=== PATIENT | female | born 1955 | race Caucasian/White ===

== ENCOUNTER 2017-11-19 06:41 | Inpatient (IN) | payer OTHER ==
[2017-11-07 08:41] LABS: APPEARANCE,URINE TURBID; BILIRUBIN, URINE NEGATIVE (NEGATIVE); GLUCOSE, URINE (UA) NEGATIVE (NEGATIVE); KETONES,URINE NEGATIVE (NEGATIVE); LEUKOCYTE ESTERASE ,URINE 1+ (NEGATIVE); NITRITE,URINE NEGATIVE (NEGATIVE); PH,URINE 6 (4.5-8.0); PROTEIN,URINE 1+ (NEGATIVE); UROBILINOGEN,URINE NORMAL MG/DL (0.0-1.0)
[2017-11-07 08:43] LABS: COLOR,URINE YELLOW
[2017-11-07 08:51] LABS: BASOPHILS % (AUTO) 1.2 % (0.0-2.0); EOSINOPHILS % (AUTO) 6.4 % (0.0-3.0); HEMATOCRIT 41.1 % (37.0-47.0); LYMPHOCYTES % (AUTO) 22.3 % (20.0-45.0); MEAN CORPUSCULAR VOLUME 94 FL (80-99); MONOCYTES % (AUTO) 11.6 % (1.0-10.0); NEUTROPHILS % (AUTO) 58.4 % (45.0-75.0); PLATELET COUNT 265 K/UL (150-450); RED BLOOD COUNT 4.36 M/UL (4.20-5.40); RED CELL DISTRIBUTION WIDTH 12.1 % (11.6-14.8); WHITE BLOOD COUNT 5.3 K/UL (4.8-10.8)
[2017-11-07 08:57] LABS: INR 0.9 (0.9-1.1)
[2017-11-07 09:13] LABS: ALANINE AMINOTRANSFERASE 23 U/L (12-78); ALBUMIN 3.5 G/DL (3.4-5.0); ALBUMIN/GLOBULIN RATIO 0.9 (1.0-2.7); ALKALINE PHOSPHATASE 120 U/L (46-116); ANION GAP 6 mmol/L (5-15); ASPARTATE AMINO TRANSFERASE 18 U/L (15-37); BILIRUBIN,TOTAL 0.2 MG/DL (0.2-1.0); BLOOD UREA NITROGEN 14 mg/dL (7-18); CALCIUM 8.4 MG/DL (8.5-10.1); CARBON DIOXIDE 28 MMOL/L (21-32); CHLORIDE 108 MMOL/L (98-107); CREATININE 0.9 MG/DL (0.55-1.30); SODIUM 142 MMOL/L (136-145)
--- NOTE | 2017-11-07 12:16 | Diagnostic Imaging Report ---
Indication: Reason For Exam: COUGH Technique: 2 views of the chest Comparison: 12/02/2010 Findings: Lungs and pleural spaces are clear. Normal heart size. Lumbar spine hardware is seen on the lateral view. There is mild thoracic scoliotic deformity. Impression: No acute process
[~2017-11-19] VITALS: Ht 162.6 cm; Wt 86.6 kg
[2017-11-19] VITALS (11 sets, daily range): BP systolic 89–119; BP diastolic 45–69
--- NOTE | 2017-11-19 00:17 | Cardiology Report ---
APPROVED REPORT EKG Measurement Heart [id number] Normal sinus rhythm with sinus arrhythmia Normal ECG
[~2017-11-19 06:41] MED LIST: ABILIFY20 MG ORAL; KADIAN20 M1 PO; LOPRESSOR HCT1 EAC3 ORAL; PROZAC40 MG ORAL; SIMVASTATIN20 MG ORAL; TOPIRAMATE100 MG ORAL
[2017-11-19] MEDS ORDERED: ceFAZolin sod 2 GM in D5W 110 ML IVPB ONE (07:00)
--- NOTE | 2017-11-19 07:45 | Pre-Procedure Note/Attestation ---
Pre-Procedure Note/Attestation Complete Prior to Procedure Procedure Narrative: L1-2 XLIF, PSF t9 to L2, laminectomy L12, revision hardware Indications for Procedure Pre-Operative Diagnosis: sp l2 s1 fusion, adjacent level arthosis L12 Attestation I attest that I discussed the nature of the procedure; its benefits; risks and complications; and alternatives (and the risks and benefits of such alternatives ), prior to the procedure, with the patient (or the patient's legal site safety representative). I attest that, if there was a reasonable possibility of needing a blood transfusion, the patient (or the patient's legal site safety representative) was given the [place] [employer] [facility] standardized written summary, pursuant to the [place] Blood Safety Act ([place] Health and Safety Code # 1645, as amended). I attest that I re-evaluated the patient just prior to the surgery and that there has been no change in the patient's H&P, except as documented below: KINA CHONG Nov 19, 2017 07:45
[2017-11-19] MEDS ORDERED: Thrombin 5000 units spray kit TOPIC ONE ×2 (08:20→10:59)
[2017-11-19] MEDS ORDERED: Thrombin 5000 units TOPIC ONE ×2 (08:20→14:57)
[2017-11-19] MEDS ORDERED: Gelfoam Absorbable 1gm powder pkt TOPIC ONE ×2 (08:20→10:59)
[2017-11-19] MEDS ORDERED: Bacitracin 50000 Units Vial ONE ×2 (08:21→16:02)
[2017-11-19] MEDS ORDERED: LR 1000ml 1,000 ML IVLG SCH (08:21)
[2017-11-19] MEDS ORDERED: Surgicel 4in x 8in TOPIC ONE (08:21)
--- NOTE | 2017-11-19 08:22 | Anethesia Preoperative Eval ---
Anesthesia Pre-op PMH/ROS General Date of Evaluation: Nov 19, 2017 Time of Evaluation: 09:26 Anesthesiologist: Karen ASA Score: ASA 3 Mallampati Score Class I : Soft palate, uvula, fauces, pillars visible Class II: Soft palate, uvula, fauces visible Class III: Soft palate, base of uvula visible Class IV: Only hard plate visible Mallampati Classification: Class II Surgeon: Robert Diagnosis: Back Pain Surgical Procedure: Lateral Spinal Fusion L1-2 Anesthesia History: none Family History: no anesthesia problems Allergies: Coded Allergies: ADHESIVE TAPE (Verified Allergy, Severe, blisters, rash , 11/18/17) CITALOPRAM (Verified Allergy, Severe, sob, asthma attack, 11/18/17) IODINATED CONTRAST- ORAL AND IV DYE (Verified Allergy, Severe, anaphylactic shock, 11/18/17) LATEX (Verified Allergy, Severe, sob, rash, hives, 11/18/17) SULFA (SULFONAMIDE ANTIBIOTICS) (Verified Allergy, Severe, anaphylactic shock , 11/18/17) Medications: see eMAR Past Medical History Cardiovascular: Reports: other - Diastolic Dysfxn, HL Pulmonary: Reports: asthma Gastrointestinal/Genitourinary: Reports: GERD Neurologic/Psychiatric: Reports: other - Epilepsy HEENT: Reports: other - Bilateral Lasik Other: obesity - BMI 33 PSxH Narrative: Appendectomy, Lumbar Fusion, Cervical Fusion, [place] Breast Reduction, NADINE, C/S, Lasik Anesthesia Pre-op Phys. Exam Physician Exam Last Vital Signs Date Time Temp Pulse Resp B/P (MAP) Pulse Ox O2 Delivery O2 Flow Rate FiO2 11/19/17 08:11 97.9 66 20 96/59 99 Room Air Constitutional: NAD Neurologic: CN 2-12 intact Cardiovascular: RRR Respiratory: CTA Gastrointestinal: S/NT/ND Airway Exam Mallampati Score: Class II MO: limited ROM: limited Teeth: intact Anesthesia Pre-op A/P Risk Assessment & Plan Assessment: ASA 3 Plan: GA, BIS, GlideScope, A-Line Status Change Before Surgery: No Pre-Antibiotics Dru Grams Ancef IV Given Within 1 Hr of Incision: Yes Time Given: 10:14 Ozzy Jones MD Nov 19, 2017 08:22
[2017-11-19 08:29] LABS: EOSINOPHILS % (AUTO) 2.2 % (0.0-3.0); HEMATOCRIT 37.1 % (37.0-47.0); LYMPHOCYTES % (AUTO) 26.4 % (20.0-45.0); MEAN CORPUSCULAR VOLUME 93 FL (80-99); MONOCYTES % (AUTO) 15.7 % (1.0-10.0); NEUTROPHILS % (AUTO) 54.8 % (45.0-75.0); PLATELET COUNT 265 K/UL (150-450); RED BLOOD COUNT 3.97 M/UL (4.20-5.40); RED CELL DISTRIBUTION WIDTH 11.5 % (11.6-14.8); WHITE BLOOD COUNT 5.3 K/UL (4.8-10.8)
[2017-11-19] MEDS ORDERED: Ketorolac 60mg Inj IV PRN (08:30)
[2017-11-19] MEDS ORDERED: Hydromorphone 0.5mg/0.5ml inj IVP PRN ×3 (08:30→20:30)
[2017-11-19] MEDS ORDERED: Acetaminophen (Non formulary) 100 ML IV ONE (08:30)
[2017-11-19] MEDS ORDERED: Metoclopramide 10mg/2ml Inj IVP PRN ×3 (08:30→20:30)
[2017-11-19] MEDS ORDERED: HYDROcodone/Acetamin 7.5/325 tab ORAL PRN ×4 (08:30→20:30)
[2017-11-19] MEDS ORDERED: Atropine Inj 1mg/10ml Syr IV PRN ×2 (08:30→18:30)
[2017-11-19] MEDS ORDERED: fentaNYL 100 mcg/2 mL IV PRN ×2 (08:30→18:17)
[2017-11-19] MEDS ORDERED: LORazepam Inj 2mg/ml 1ml IV PRN ×2 (08:30→18:30)
[2017-11-19] MEDS ORDERED: Norco 5mg/325mg tab ORAL PRN ×3 (08:30→20:30)
[2017-11-19] MEDS ORDERED: DiphenhydrAMINE 50mg/ml Inj IVP PRN ×2 (08:30→18:30)
[2017-11-19] MEDS ORDERED: oxyCODONE HCL/Acetaminophen 5/325mg ORAL PRN ×2 (08:30→18:18)
[2017-11-19] MEDS ORDERED: Midazolam 2mg/2ml Inj IVP PRN ×2 (08:30→18:30)
[2017-11-19] MEDS ORDERED: Labetalol 5mg/ml 20ml vial IV PRN ×2 (08:30→18:19)
[2017-11-19] MEDS ORDERED: Ketorolac 30mg Inj IV PRN ×2 (08:30→18:18)
[2017-11-19] MEDS ORDERED: Bupivacaine 0.5% Inj 30 ml vial INJ ONE (09:26)
[2017-11-19] MEDS ORDERED: fentaNYL 100 mcg/2 mL IV ONE (10:00)
[2017-11-19] MEDS ORDERED: Dexamethasone 4mg/ml vial ONE (10:00)
[2017-11-19] MEDS ORDERED: Lidocaine 1% Plain 30 ml INJ ONE (10:00)
[2017-11-19] MEDS ORDERED: NS Irrig 1000ml ONE (10:00)
[2017-11-19] MEDS ORDERED: LR 1000ml ONE ×2 (10:00)
[2017-11-19] MEDS ORDERED: Midazolam 2mg/2ml Inj ONE (10:00)
[2017-11-19] MEDS ORDERED: Sterile Water Irrig 1000ml IRRIG ONE (10:00)
--- NOTE | 2017-11-19 11:58 | Immediate Post-Op Evaluation ---
Immediate Post-Op Evalulation Immediate Post-Op Evalulation Procedure: Lateral Spinal Fusion L1-2 Date of Evaluation: Nov 19, 2017 Time of Evaluation: 18:17 IV Fluids: 2100 LR Blood Products: 400 CS, 1500 Alb Estimated Blood Loss: 1000 Urinary Output: 910 Blood Pressure Systolic: 86 Blood Pressure Diastolic: 46 Pulse Rate: 87 Respiratory Rate: 16 O2 Sat by Pulse Oximetry: 100 Temperature (Fahrenheit): 97.8 Pain Score (1-10): 3 Nausea: No Vomiting: No Complications 0 Patient Status: awake, reacts, patent, extubated, none Hydration Status: adequate Dru Grams Ancef IV Given Within 1 Hr of Incision: Yes Time Given: 10:14 Ozzy Jones MD Nov 19, 2017 11:58
[2017-11-19] MEDS ORDERED: EPINEPHrine 1mg/1ml Amp IV ONE (13:56)
--- NOTE | 2017-11-19 16:51 | Diagnostic Imaging Report ---
Indication: Operative imaging during lumbar fusion Comparison: None Findings: Fluoroscopic views of the lumbar spine were obtained. Multilevel fusion of the lumbar spine demonstrated. Pedicle screws and fusion rods demonstrated within the lumbar spine. Additionally there is a second set of fusion apparatus extending from the upper lumbar to lower thoracic spine. IMPRESSION: Intraoperative imaging
[2017-11-19] MEDS ORDERED: traMADol 50mg tab ORAL PRN (17:30)
--- NOTE | 2017-11-19 17:58 | Brief Operative Note ---
Immediate Post Operative Note Operative Note Pre-op Diagnosis: sp l2 s1 fusion, adjacent level arthosis L12 Procedure: xlif l12, LSF t10 to L2, Revision hardware L23, laminectomy L1 and L2 Post-op Diagnosis: same as pre-op plus Findings: consistent w/pre-op dx studies Surgeon: jacklyn Used Car Manager: angelina Additional Surgeons: anali Cuevas Anesthesia: general Specimen: none Complications: none Condition: stable Fluids: 2100 LR, 400 cell saver, 1500 albumin Estimated Blood Loss: volume - 1000 Drains: hemovac Implant(s) used?: Yes - spinal elements cage and screws KINA CHONG Nov 19, 2017 17:58
[2017-11-19] MEDS ORDERED: Milk of Magnesia 30ml Ud ORAL PRN (20:30)
[2017-11-19] MEDS ORDERED: Hydromorphone 0.5mg/0.5ml inj SUBQ PRN ×2 (20:30→20:45)
[2017-11-19] MEDS ORDERED: Hydromorphone 0.5mg/0.5ml inj SUBQ ONE (20:35)
[2017-11-19] MEDS: Docusate 100mg cap ORAL SCH (20:56)
[2017-11-19] MEDS: D5 1/2NS 1,000 ML IV SCH (20:57)
[2017-11-19] MEDS ORDERED: Chloraseptic Spray 20mL Bottle ORAL PRN (21:00)
[2017-11-19] MEDS ORDERED: Topiramate 100mg tab ORAL SCH (21:00)
[2017-11-19] MEDS ORDERED: Zolpidem 5mg tab ORAL PRN ×2 (21:00)
[2017-11-19] MEDS ORDERED: MS Contin 30mg tab ORAL SCH (21:00)
[2017-11-19] MEDS: ceFAZolin sod 1 GM in D5W 55 ML IV SCH (21:43)
[2017-11-19] MEDS: PCA HYDROmorphone 1mg/ml 30 ML IV PRN (21:51)
[2017-11-19] MEDS: ARIPiprazole 10mg tab ORAL SCH (22:37)
[2017-11-19] MEDS: Topiramate 100mg tab ORAL SCH (22:38)
[2017-11-19] MEDS: MS Contin 15mg tab ORAL SCH (22:40)
[2017-11-20] VITALS: BP 105/62
[2017-11-20] MEDS: ceFAZolin sod 1 GM in D5W 55 ML IV SCH ×2 (02:05→11:30)
[2017-11-20 04:29] VITALS: BP 115/60
[2017-11-20] MEDS: D5 1/2NS 1,000 ML IV SCH ×3 (06:33→22:24)
[2017-11-20] MEDS ORDERED: Naloxone 0.4mg/ml Inj IVP PRN (07:15)
[2017-11-20 07:34] LABS: ANION GAP 7 mmol/L (5-15); BLOOD UREA NITROGEN 9 mg/dL (7-18); CALCIUM 8.4 MG/DL (8.5-10.1); CARBON DIOXIDE 26 MMOL/L (21-32); CHLORIDE 106 MMOL/L (98-107); CREATININE 0.8 MG/DL (0.55-1.30); POTASSIUM 4.3 MMOL/L (3.5-5.1); SODIUM 139 MMOL/L (136-145)
[2017-11-20 07:38] LABS: HEMATOCRIT 21.6 % (37.0-47.0); HEMOGLOBIN 7.1 G/DL (12.0-16.0); MEAN CORPUSCULAR VOLUME 94 FL (80-99); PLATELET COUNT 192 K/UL (150-450); RED CELL DISTRIBUTION WIDTH 11.5 % (11.6-14.8); WHITE BLOOD COUNT 10.7 K/UL (4.8-10.8)
[2017-11-20 08:00] VITALS: BP 111/70
--- NOTE | 2017-11-20 08:43 | Orthopedic Spine Progress Note ---
Ortho Spine - Progress Note Subjective Symptoms: c/o post-op back pain Objective Vital Signs: Last 24 Hour Vital Signs Date Time Temp Pulse Resp B/P (MAP) Pulse Ox O2 Delivery O2 Flow Rate FiO2 11/20/17 08:00 18 11/20/17 04:30 Nasal Cannula 2.0 11/20/17 04:29 98.6 89 19 115/60 96 11/20/17 04:00 16 11/20/17 00:01 Nasal Cannula 3.0 11/20/17 00:00 16 11/20/17 00:00 98.1 84 18 105/62 97 11/19/17 22:00 16 11/19/17 20:30 98.2 90 16 94/54 98 Nasal Cannula 3.0 11/19/17 19:30 98.1 91 17 117/69 100 11/19/17 19:20 98.3 94 17 104/54 98 Nasal Cannula 3.0 11/19/17 19:05 91 16 105/49 98 Nasal Cannula 3.0 11/19/17 18:50 95 22 119/59 100 Nasal Cannula 3.0 11/19/17 18:35 97 16 108/57 100 Simple Mask 6.0 11/19/17 18:25 94 15 100/65 100 Simple Mask 6.0 11/19/17 18:15 97 20 104/53 100 Simple Mask 6.0 11/19/17 18:10 93 15 95/45 100 Simple Mask 6.0 11/19/17 18:06 97.8 94 11 89/49 100 Simple Mask 6.0 11/19/17 18:06 87 16 100 I&O: Intake and Output 11/19/17 11/20/17 19:00 07:00 Intake Total 4000 ml 2050 ml Output Total 1910 ml 1320 ml Balance 2090 ml 730 ml Intake Oral 240 ml IV Total 2100 ml 1810 ml Blood Product 400 ml Other 1500 ml Output Urine Total 910 ml 900 ml Drainage Total 420 ml Estimated Blood Loss 1000 ml Wound: clean, intact Drains: hemovac Neuro Status: normal Assessment Procedure Performed: xlif l12, LSF t10 to L2, Revision hardware L23, laminectomy L1 and L2 Plan Plan: PT, pain management, continue antibiotics, continue drain Additional Comments: await cxr cbc in KINA Harris Nov 20, 2017 08:43
[2017-11-20] MEDS: Docusate 100mg cap ORAL SCH ×2 (09:26→18:07)
[2017-11-20] MEDS: MS Contin 15mg tab ORAL SCH ×2 (09:27→22:22)
--- NOTE | 2017-11-20 09:42 | Operative Note - Dictated ---
DATE OF OPERATION: 11/19/2017 SURGEONS: 1. Matt Cuevas M.D. (for the approach). 2. Daniel Jones M.D. (for the spine procedure). ANESTHESIOLOGIST: Ozzy Jones M.D. ANESTHESIA: General endotracheal. PREOPERATIVE DIAGNOSIS: Disc disease L1-L2 (one interspace). POSTOPERATIVE DIAGNOSIS: Disc disease L1-L2 (one interspace). OPERATIVE PROCEDURE: 1. Muscle sparing extraperitoneal-extrapleural extreme lateral interbody fusion, L1-L2 (one interspace). 2. Transpsoas exposure of the lateral surface of the spine at L1-L2. 3. Resection of left 11th rib. INFORMED CONSENT: The procedure of access for extreme lateral interbody fusion was explained in detail to the patient preoperatively via the phone and repeated in the preoperative holding area. The risks including hemorrhage, infection, visceral injury, nerve injury, vascular injury, and pneumothorax were explained in detail. The patient stated that she understood the procedure, its rationale and risks. She had no further questions and accepted the procedure as outlined above. Background information, indications for surgery, description of operative findings and specimens removed will be contained in Dr. Jones's operative report. OPERATIVE FINDINGS PERTINENT TO THE ACCESS: All retropleural and retroperitoneal structures were normal. OPERATIVE PROCEDURE: The patient was brought to the operating room in stable condition. Monitoring was instituted with arterial line, ECG, O2 saturation monitor and blood pressure cuff. The patient was induced with anesthesia without any difficulty. The patient was placed in the right lateral decubitus position for a left lateral incision. The patient was prepared and draped in a sterile fashion. Under fluoroscopic guidance, the level of the L1-L2 disc was marked on the skin. A transverse incision was made at the appropriate level as determined by fluoroscopy. The subcutaneous tissue was divided using electrocautery. The fascia of the latissimus dorsi muscle was incised with the cautery. Using a muscle sparing technique, the muscle fibers of the latissimus dorsi muscle were in the direction of their fibers. The left 11th rib was exposed and resected subperiosteally for approximately 5 cm and saved for graft material. The extrapleural and retroperitoneal spaces were entered through the bed of the rib. The diaphragm was mobilized anteriorly off of the chest wall. The psoas and diaphragmatic crural muscles were identified. Once the dissection was completed and the quadratus lumborum, psoas, and crural muscles were identified, the fibers of the psoas and crural muscles were using a muscle sparing technique. The disc was then identified. Using neuromonitoring to confirm that there were no nerves in the area, a K-wire was deployed into the disc. Using a dilator system with neuromonitoring, the appropriate access to the L1-L2 disc was created. The retractor system was deployed over the dilators. Under fluoroscopic guidance, the midportion of the disc and the appropriate level were confirmed. Neuromonitoring was used to show no nerves in proximity to the operative field. Once the system was deployed, Dr. Jones proceeded to perform the discectomy, partial vertebrectomy, and fusion using the appropriate technique and hardware. Once this was completed, the retractor system was removed. Inspection was carried out for hemostasis while gradually removing the retractor system. Once the retractor system was removed, the peritoneum and the pleura came back to their normal anatomic position. The muscle layers and diaphragm came back to their normal anatomic position. The area was water tested under a Valsalva maneuver for any possibility of pneumothorax. No bubbles were seen indicating that there was no entry into the pleural space. The muscle layers were closed with a continuous suture of 0 PDS II. The subcutaneous tissue was closed with a continuous suture of 2-0 Vicryl. The skin was approximated using a continuous subcuticular stitch of 2-0 Vicryl. Steri-Strips and a sterile dressing were applied. Estimated blood loss was minimal and less than 10 mL. Manual and visual sweeps were correct. Final sponge, needle, and instrument counts were verified as correct x2. The patient remained in the operating room, in stable condition, under anesthesia for repositioning and further surgery. There were normal dorsalis pedis and posterior tibial pulses in both feet. Matt Cuevas M.D. DR: YAHAIRA JOB#: [id number] CC: Daniel Jones M.D.; Fax#: [phone] [facility]
--- NOTE | 2017-11-20 09:43 | Operative Note - Dictated ---
DATE OF OPERATION: 11/19/2017 SURGEON: Daniel Jones M.D. GAMING CAGE CASHIER: Scooter Stephen PA-C. PREOPERATIVE DIAGNOSES: 1. Status post prior L2 through S1 fusion, status post XLIF fusion anteriorly, L1-L2 performed earlier in the day. 2. Spinal stenosis, L1-L2. 3. Compression fracture, chronic at T12. POSTOPERATIVE DIAGNOSES: 1. Status post prior L2 through S1 fusion, status post XLIF fusion anteriorly, L1-L2 performed earlier in the day. 2. Spinal stenosis, L1-L2. 3. Compression fracture, chronic at T12. OPERATIONS PERFORMED: 1. Posterior spinal fusion, T10, T11, T12, L1, L2. 2. Segmental instrumentation with dominos attached to the prior construct at L2 through S1. 3. Revision of hardware, L2, L3, and L4. 4. Laminectomy, complete L1. 5. Redo partial laminectomy, L2. 6. Use of operating microscope. 7. Neurodiagnostic monitoring with pedicle screw stimulation at the L1 level. 8. Micro technique and neurolysis at L1. ESTIMATED BLOOD LOSS: A total of 1000 mL of blood loss noted. FLUIDS GIVEN TO THE PATIENT: A 2100 of lactated Ringers and 400 1500 albumin. INDICATIONS: The patient is a very pleasant woman with a prior fusion at L2 through S1 with adjacent level arthropathy and stenosis. Surgical recommendations were made to stabilize and extend the fusion to T10. She had already undergone XLIF at L1-L2 earlier in the day. Subtotal laminectomy at L1-L2 was required. The patient understood and wished to proceed. RISK NOTE: The patient was explained in detail risks and benefits of surgery to include but not be limited to those of bleeding, infection, damage to nerves, vessels, tendons, anesthetic risk, allergic reaction, aspiration, and possibly . The patient understood and wished to proceed. OPERATIVE PROCEDURE IN DETAIL: Under benefits of general anesthesia, the patient was turned prone onto the Oj frame. All bony prominences were well padded. The back was prepped and draped in usual sterile fashion. An incision was made from T10 down to L3. Subperiosteal dissection was carried out from T10, T11, T12, L1, and L2, and an oblique incision and subfascial approach was made to the hardware from L2-L3 and partially at L4. At this juncture, the pedicle screws at T10, T11, T12, and L1 were placed bilaterally using standard technique at these segments using both anatomic and fluoroscopic landmarks. The screws were 5.5 mm x 45 mm in length. At this juncture, once all the screws were placed, the locking caps at L2 and L3 were removed bilaterally. Bony overgrowth was drilled out using Midas Casey drill. At this point, two [id number]-[id number] ilia connectors were inserted between the screw heads of L2 and L3. This was achieved by undermining the bone graft/fusion as well as by removing the locking caps at L2 and L3, which allowed to slightly mobilize the ilia and place the transverse connectors. The oxgi-mm-bwwv connectors were then placed, which then allowed for an appropriately sized ilia to extend from T10 down to all the screw heads as well as the gzif-fo-[id number] connector between L2-L3. All locking caps were secured and torqued to the appropriate level. At this point, copious pulsatile lavage was performed. Microscope was brought in and a high-speed drill was used to perform laminectomy at L1 and partial upper two-thirds at L2. This was performed using a high-speed drill as well as Kerrison punches. Copious irrigation was performed and once satisfied with the decompression, the lateral recesses were decompressed. Meticulous neurolysis was performed as there were significant adhesions from the prior multiple surgeries. Once satisfied with the decompression as well as fusion T10 through L2, the decision was made to close. Decortication from T10, T11, T12, L1 was performed and bone graft locally from the laminectomy mixed with allograft was then placed onto and an onlay fusion was performed along the lamina at T10 through L2. A transverse ilia-to-ilia connector was then placed roughly at or about the T11 level. The transverse connector was secured and torqued to the appropriate level. At this juncture, decision was made to close after meticulous hemostasis was achieved. A #1 Vicryl was used for the fascia. Please note that two drains were placed deep to the fascia on each side. Subcutaneous closure using 2-0 Vicryl and Monocryl, Dermabond was applied and a sterile dressing. The patient was then turned onto her back, awakened, extubated, and transferred to the recovery room in stable condition. Daniel Jemma Jones DR: Mercedes JOB#: [id number] CC:
--- NOTE | 2017-11-20 09:43 | Consultation ---
DATE OF CONSULTATION: 11/19/2017 ACUTE PAIN CONSULTATION CONSULTING PHYSICIAN: Rick Song M.D. REFERRING PHYSICIAN: Daniel Jones M.D. REASON FOR CONSULTATION: Acute pain consult. HISTORY OF PRESENT ILLNESS: Dear Dr. Daniel Jones: Thank you kindly for consulting me to evaluate and render an opinion as how to proceed in the management of the patient's acute postoperative lumbar spine pain after multiple level lumbar spine fusion surgery today. The patient is a pleasant obese 62-year-old woman, who injured her lumbar spine nearly 20 years ago at work. Today, she underwent extensive multilevel lumbar spine fusion surgery. She has been following with an outpatient pain doctor in [place], [place], who has her on high-dose long-acting extended release morphine for pain control. She has seen multiple pain management doctors in the past for her chronic lumbar spine pain. Today after surgery, she complains of excruciating postoperative pain. I saw the patient at the bedside. I performed detailed history and physical examination. I reviewed the medical record in detail. I spent over 75 minutes in consultation with an additional 30 minutes in medical record review. I saw the patient at bedside with the nurse RN, Aubrey and I discussed the case with yourself, Dr. Jones. I reviewed multiple records from today's date of surgery at [facility] on 11/19/2017 including consent for surgical treatment, consent for anesthesia, consent for blood products, medication administration record, medication reconciliation order form, PACU record, PACU orders, DIRECTOR PATIENT [employer]CIAL [employer] order sheet, DIRECTOR PATIENT [employer]CIAL [employer] analgesia flow sheet, postoperative spine surgical orders, postoperative surgery report by Dr. Jones, guidelines for prophylactic antibiotics, guidelines for DVT prophylaxis, anesthesia record, pre and post anesthesia evaluation record, and implant log. Further record review included preoperative history and physical by Dr. Conley on 11/07/2017 along with diagnostic testing including laboratory studies, a 12-lead EKG, and chest x-ray. PAST MEDICAL HISTORY: 1. Acute postoperative lumbar spine pain, status post multiple-level lumbar spine fusion surgery with instrumentation by Dr. Daniel Jones on 11/19/2017 . 2. Work-related injury. 3. Chronic lumbar spine pain. 4. Morbid obesity. 5. Rheumatoid arthritis. 6. Opioid dependence. 7. Depression. 8. Diastolic cardiac dysfunction. PAST SURGICAL HISTORY: 1. Multilevel cervical spine fusion surgery in 1991. 2. Hysterectomy. 3. Appendectomy. 4. Gastric sleeve. 5. Bariatric surgery in November 2016. MEDICATIONS AT HOME: 1. Extended release morphine, MS Contin 30 mg at bedtime. Her outpatient pain doctor in [place] does prescribe these medications twice daily; however, because the patient has to care for grandchildren during the daytime, she only takes a nighttime dose. The patient has used both [place] and Percocet in the past, with better efficacy with Percocet. The patient states that she has used Norflex as a muscle relaxant in the past. Soma has been well tolerated as well. 2. Topamax 100 mg. 3. Zocor. 4. Prozac. 5. Hydrochlorothiazide. 6. Lopressor. ALLERGIES: Multiple including adhesive tape, Celexa, oral and an intravenous iodine, latex, and sulfa. SOCIAL HISTORY: The patient lives at home with her . She takes care of her grandchildren. She denies marijuana, alcohol, or tobacco usage. FAMILY HISTORY: Obesity. REVIEW OF SYSTEMS: Per Dr. Win Conley. PHYSICAL EXAMINATION: VITAL SIGNS: Age 62. Height 5 feet 4 inches and weight 87 kg. Body mass index 33. VITAL SIGNS: Shows afebrile, pulse 91, respirations 17, blood pressure 117/69, oxygen saturation 100% on supplemental oxygen. The patient is alert and oriented x3. MUSCULOSKELETAL: Moving all extremities x4. A 5/5 dorsiflexion and 5/5 plantar flexion in bilateral lower extremities. Gee catheter in place. Significant pain with log rolling and range of motion. Straight leg raising is deferred. NEUROLOGIC: Deferred to Dr. Jones. HEENT: Normocephalic and atraumatic. CHEST: Barrel chested. Basilar crackles, likely secondary to postoperative atelectasis and morbid obesity. CARDIAC: Positive S4. Normal S1, S2. No S3 appreciated. ABDOMEN: Obese. Positive BS. Positive pannus. BACK: Lumbar spine shows Hemovac drain holding suction. Dressing appears clean and dry. BREASTS: Deferred to Dr. Conley. GENITOURINARY: Deferred to Dr. Conley. LABORATORY AND DIAGNOSTIC DATA: Laboratory studies on 11/07/2017, white count 5, hematocrit 41, and platelets 270,000. Sodium 142, potassium 4.0, chloride 108, bicarb 28, BUN 14, creatinine 0.9, glucose 110, and calcium 8.4. Total bilirubin 0.2. AST 18, ALT 23, and total protein 7.4. Albumin 3.5. Alkaline phosphatase 120. INR 0.9. PTT 24. Urinalysis shows 1+ leukocyte esterase, 1+ protein, nitrite negative, and moderate bacteria. Urine culture negative on 11/07/2017. A 12-lead EKG shows sinus bradycardia, ventricular rate 59 with evidence for acute cardiac ischemia in October 2017. Preoperative chest x-ray shows no acute cardiopulmonary process on 11/07/2017. IMPRESSION: 1. Acute postoperative lumbar spine pain, status post multiple-level lumbar spine fusion surgery with instrumentation by Dr. Daniel Jones on 11/19/2017 . 2. Work-related injury. 3. Chronic lumbar spine pain. 4. Morbid obesity. 5. Rheumatoid arthritis. 6. Opioid dependence. 7. Depression. 8. Diastolic cardiac dysfunction. TREATMENT AND RECOMMENDATIONS: 1. After extensive discussion with the patient and taking detailed opioid narcotic history over the past 20 years of chronic lumbar spine pain and opioid dependence, I have devised the following analgesic plan. I will start the patient on a high dose Dilaudid DIRECTOR PATIENT [employer]CIAL SERVICES unit. She has previously received multiple doses of pain medications already without adequate pain control. I will set the Dilaudid DIRECTOR PATIENT [employer]CIAL SERVICES with 0.3 mg demand dose at 12-minute lockout for better safety profile and 6 mg 4-hour limit. There will be no underlying basal or continuous rate to reduce the risk of respiratory depression in this obese woman. I would recommend a continuous pulse oximetry as well as supplemental oxygen for at least the first 24 hours. With the patient's considerable opioid tolerance over many years with a chronic opioid dependence, respiratory depression should be low-risk. Additionally, I have asked the nurse to bolus her with the breakthrough dose of Dilaudid 1.5 mg subcutaneously now as a catch-up dose while continuing with breakthrough dose every 3 hours p.r.n. Additionally, I have added oxycodone 10 mg every 3 hours p.r.n. for moderate pain, which hopefully will be a good transition off of parental narcotics after hospitalization continues. The patient had responded to Soma in the past. Her muscle relaxant of choice Norflex is not available here in the hospital formulary. I have ordered Soma 350 mg orally every 8 hours p.r.n. for muscle spasm. I will restart the patient's psychiatric medications including Abilify 20 mg nightly. She also uses Prozac 40 mg each morning along with the b.i.d. dose of Topamax 100 mg. The patient has been tolerating extended release morphine 30 mg nightly for a considerable length of time. I will restart that medication tonight and increase the frequency to q.12 hours, which the patient should be able to tolerate quite well. I increased the frequency to every 8 hours made be necessary once she starts physical therapy training. We will see how she does with the high-dose DIRECTOR PATIENT FINANCIAL SERVICES unit started already. In conjunction, I have also ordered a Chloraseptic spray bottle to the bedside for topical sore throat complaints. In case of any nausea symptoms, I have ordered Zofran 4 mg intravenously every 4 hours p.r.n. as a first-line agent with a rescue dose of suppository 12.5 mg every 12 hours p.r.n. for refractory nausea. I will place the patient on Protonix 40 mg nightly for GI ulcer prophylaxis. I have also ordered p.r.n. dose of Mylanta 30 mL q.6 hours p.r.n. for any GERD symptom exacerbation. The patient will be started on Colace b.i.d. as a stool softener and Dr. Jones has ordered p.r.n. milk of magnesia as a rescue laxative. The patient may be at risk for opioid-induced constipation. We will see how matters progress. 2. For DVT prophylaxis, the patient has been placed on sequential compression devices on bilateral calves. I will order incentive spirometer in this obese woman to encourage good pulmonary toilet, to help reduce the risk of postoperative pneumonia and atelectasis. The patient states that she already has a good supply of MS Contin extended release at home from her outpatient pain management doctor in [place], [place]. Rick Song M.D. DR: JAYME JOB#: [id number] CC:
--- NOTE | 2017-11-20 09:43 | Operative Note - Dictated ---
DATE OF OPERATION: 11/19/2017 SURGEON: Daniel Jones M.D. CARDIOTHORACIC CO-SURGEON: Matt Cuevas M.D. DIXONAC OPERATOR: Scooter Stephen PA-C. PREOPERATIVE DIAGNOSIS: Status post prior fusion, L2 through S1 with adjacent level arthropathy L1-L2 with moderately severe spinal stenosis L1-L2. POSTOPERATIVE DIAGNOSIS: Status post prior fusion, L2 through S1 with adjacent level arthropathy L1-L2 with moderately severe spinal stenosis L1-L2. PROCEDURE: 1. Extreme lateral interbody fusion, L/anterior interbody fusion L1-L2. 2. Interbody structural PEEK graft, spinal elements. 3. Use of fluoroscopy. 4. Use of local autograft bone (harvested rib as well as allograft bone). ESTIMATED BLOOD LOSS: Minimal. COMPLICATIONS: None. INDICATIONS: The patient is a very pleasant woman, status post prior L2 through S1 fusion with adjacent level arthropathy, spinal stenosis, previously was recommended extension of the fusion. She did also develop a compression fracture at T12. Surgical options were recommended and extreme lateral fusion was recommended in order to obtain anterior fusion mass. The patient elected to proceed. RISK NOTE: The patient was explained in detail the risks and benefits of surgery to include, but not be limited to those of bleeding, infection, damage to nerves, vessels, tendons, anesthetic risk, allergic reaction, aspiration, and possibly . The patient understood and wished to proceed. OPERATIVE PROCEDURE IN DETAIL: The patient was taken to the operating suite after being positioned right side down lateral decubitus with bolsters in place after general endotracheal anesthesia was induced. The table was bent to the appropriate position. Fluoroscope was brought in and the L1-L2 level was identified. At this point, the left flank was prepped and draped in the usual sterile fashion. The left-sided transthoracic/extrapleural approach was performed by Dr. Matt Cuevas, the cardiothoracic co-surgeon. The approach will be dictated separately. At this point, once the approach was completed, dilators and retractor in place as well as the guidewire in place at L1-L2. Under fluoroscopic guidance, the spine surgical team proceeded to perform a wide and radical discectomy. Please note that advanced discogenic collapse was noted and due to endplate sclerotic changes, minimal distraction of the disc space was achieved. At this point, the endplate preparation was performed with a rotary 7 mm shaver as well as pituitary endplate rasps and Kerrison punches. At this point, a 7 mm trial was inserted and a 45 mm length was chosen. Please note that the segment of rib, which was morselized was packed in the center of the PEEK interbody device as well as the allograft bone substitute. This was inserted into the center to fenestrations of the interbody cage and under fluoroscopic guidance, it was placed within the center of the disc space. Once satisfied with this, an AP and lateral projections were adequate, decision was made to close. The closure will be dictated separately by Dr. Cuevas. Sponge and needle counts were correct. The patient remained intubated preparing for the posterior approach. [facility] Jemma Jones DR: DARIN JOB#: [id number] CC:
[2017-11-20] MEDS ORDERED: PCA Education Pamphlet MISC ONE (10:00)
--- NOTE | 2017-11-20 11:21 | 48 Hour Post Anesthesia Eval ---
Post Anesthesia Evaluation Procedure: Lateral Spinal Fusion L1-2 Date of Evaluation: Nov 20, 2017 Blood Pressure Systolic: 115 0: 60 Pulse Rate: 89 Respiratory Rate: 19 Temperature (Fahrenheit): 98.6 O2 Sat by Pulse Oximetry: 96 Airway: patent Nausea: No Vomiting: No Pain Intensity: 3 Hydration Status: adequate Cardiopulmonary Status: at baseline Mental Status/LOC: patient returned to baseline Post-Anesthesia Complications: 0 Follow-up care needed: N/A - further care as per primary team NIKHIL MORENO M.D. Nov 20, 2017 11:21
[2017-11-20 12:00] VITALS: BP 118/54
--- NOTE | 2017-11-20 12:26 | Diagnostic Imaging Report ---
Indication: Reason For Exam: PNEUMOTX Technique: Portable frontal view of the chest Comparison: 11/07/2017 Findings: Heart size and mediastinal contours are stable. Interval spinal surgery with improved scoliosis and fixation of the spine by means of posterior rods and screws. There is no definite pneumothorax. There is no focal airspace consolidation. Impression: No definite pneumothorax. Interval spinal surgery with improved alignment of the spine.
[2017-11-20 12:51] LABS: HEMATOCRIT 24.2 % (37.0-47.0); HEMOGLOBIN 7.9 G/DL (12.0-16.0); MEAN CORPUSCULAR VOLUME 94 FL (80-99); PLATELET COUNT 203 K/UL (150-450); RED BLOOD COUNT 2.57 M/UL (4.20-5.40); RED CELL DISTRIBUTION WIDTH 11.1 % (11.6-14.8); WHITE BLOOD COUNT 14.2 K/UL (4.8-10.8)
[2017-11-20] MEDS: oxyCODONE 5mg IR tab ORAL PRN ×3 (14:02→21:10)
[2017-11-20 16:00] VITALS: BP 90/58
[2017-11-20] MEDS: PCA shift volume MISC SCH (19:00)
--- NOTE | 2017-11-20 19:43 | Internal Med Progress Note ---
Subjective Date of Service: Nov 20, 2017 Physician Name Jean-Paul Landaverde Attending Physician Daniel Jones Current Medications Medications (Trade) Dose Ordered Sig/Christa Route PRN Reason Start Time Stop Time Status Last Admin Dose Admin Acetaminophen (Tylenol) 650 mg Q4H PRN ORAL headache or temp>101 11/19/17 20:30 12/19/17 20:29 11/20/17 16:34 Al Hydroxide/Mg Hydroxide (Mylanta) 30 ml Q6H PRN ORAL GERD 11/19/17 20:45 12/19/17 20:44 Aripiprazole (Abilify) 20 mg QHS ORAL 11/19/17 21:00 12/19/17 20:59 11/19/17 22:37 Carisoprodol (Soma) 350 mg Q8H PRN ORAL SPASM 11/19/17 20:45 12/19/17 20:44 Dextrose/Sodium Chloride 1,000 ml @ 100 mls/hr Q10H IV 11/19/17 20:30 12/19/17 20:29 11/20/17 06:33 Diphenhydramine HCl (Benadryl) 25 mg Q6H PRN ORAL Itching 11/19/17 20:45 12/19/17 20:44 Docusate Sodium (Colace) 100 mg TWICE A DAY ORAL 11/19/17 20:30 12/19/17 20:29 11/20/17 18:07 Fluoxetine HCl (PROzac) 40 mg DAILY ORAL 11/20/17 09:00 12/20/17 08:59 11/20/17 09:26 Hydromorphone HCl 30 ml @ 0 mls/hr PLAYER MANAGER protocol PRN IV For Pain 11/19/17 20:45 11/21/17 20:44 11/19/17 21:51 Hydromorphone HCl (Dilaudid) 1 mg Q3H PRN SUBQ Severe Breakthru Pain (>7) 11/20/17 14:45 11/27/17 14:44 Magnesium Hydroxide (Mom) 30 ml QIDPRN PRN ORAL Constipation 11/19/17 20:30 12/19/17 20:29 Miscellaneous Medication (PLAYER MANAGER shift volume) 1 ea Q12HR@0700,1900 MISC 11/20/17 19:00 11/22/17 18:59 11/20/17 19:00 Morphine Sulfate (MS Contin) 30 mg Q12HR ORAL 11/19/17 23:00 11/26/17 22:59 11/20/17 09:27 Naloxone HCl (Narcan) 0.1 mg Q1M PRN IVP RR<10/min OR SBP<90 mmHg 11/20/17 07:15 11/22/17 07:14 Ondansetron HCl (Zofran) 4 mg Q4H PRN IVP Nausea & Vomiting 11/19/17 21:00 12/19/17 20:59 Oxycodone HCl (Roxicodone) 10 mg Q3H PRN ORAL Moderate Breakthru Pain (5-7) 11/19/17 20:45 11/26/17 20:44 11/20/17 18:10 Pantoprazole (Protonix) 40 mg BEDTIME ORAL 11/19/17 21:00 12/19/17 20:59 11/19/17 20:56 Phenol/Menthol (Chloraseptic) 1 spray Q3H PRN ORAL sore throat 11/19/17 21:00 12/19/17 20:59 Promethazine HCl (Phenergan Supp) 12.5 mg Q12H PRN RECTAL Nausea & Vomiting 11/19/17 20:45 12/19/17 20:44 Topiramate (Topamax) 100 mg QHS ORAL 11/19/17 22:00 12/19/17 21:59 11/19/17 22:38 Zolpidem Tartrate (Ambien) 5 mg HSPRN PRN ORAL Insomnia 11/19/17 21:00 11/26/17 20:59 Allergies: Coded Allergies: ADHESIVE TAPE (Verified Allergy, Severe, blisters, rash , 11/18/17) CITALOPRAM (Verified Allergy, Severe, sob, asthma attack, 11/18/17) IODINATED CONTRAST- ORAL AND IV DYE (Verified Allergy, Severe, anaphylactic shock, 11/18/17) LATEX (Verified Allergy, Severe, sob, rash, hives, 11/18/17) SULFA (SULFONAMIDE ANTIBIOTICS) (Verified Allergy, Severe, anaphylactic shock , 11/18/17) ROS Limited/Unobtainable: No Constitutional: Reports: no symptoms HEENT: Reports: no symptoms Cardiovascular: Reports: no symptoms Respiratory: Reports: no symptoms Gastrointestinal/Abdominal: Reports: no symptoms Genitourinary: Reports: no symptoms Neurologic/Psychiatric: Reports: other - back pain Subjective 62 YO F admitted for chronic lumbar spine pain. S/P multi-level lumbar spine fusion and laminectomy 11/19/17. Cover for Int Reji-Dr Conley. Objective Last Vital Signs Date Time Temp Pulse Resp B/P (MAP) Pulse Ox O2 Delivery O2 Flow Rate FiO2 11/20/17 16:00 98.6 100 19 90/58 96 11/20/17 04:30 Nasal Cannula 2.0 General Appearance: WD/WN, alert, moderate distress, obese EENT: PERRL/EOMI, normal ENT inspection Neck: non-tender, normal alignment, supple, normal inspection Cardiovascular: normal peripheral pulses, normal rate, regular rhythm, no gallop/murmur, no JVD Respiratory/Chest: chest wall non-tender, lungs clear, normal breath sounds, no respiratory distress, no accessory muscle use Abdomen: normal bowel sounds, non tender, soft, no organomegaly, no mass Extremities: normal range of motion, non-tender Neurologic: environmental services associate II-XII grossly normal, no motor/sensory deficits Skin: normal pigmentation, warm/dry Laboratory Tests Test 11/20/17 05:50 11/20/17 12:15 White Blood Count 10.7 K/UL (4.8-10.8) # 14.2 K/UL (4.8-10.8) H Red Blood Count 2.30 M/UL (4.20-5.40) L 2.57 M/UL (4.20-5.40) L Hemoglobin 7.1 G/DL (12.0-16.0) #L 7.9 G/DL (12.0-16.0) L Hematocrit 21.6 % (37.0-47.0) #L 24.2 % (37.0-47.0) L Mean Corpuscular Volume 94 FL (80-99) 94 FL (80-99) Mean Corpuscular Hemoglobin 30.9 PG (27.0-31.0) 30.8 PG (27.0-31.0) Mean Corpuscular Hemoglobin Concent 32.9 G/DL (32.0-36.0) 32.8 G/DL (32.0-36.0) Red Cell Distribution Width 11.5 % (11.6-14.8) L 11.1 % (11.6-14.8) L Platelet Count 192 K/UL (150-450) 203 K/UL (150-450) Mean Platelet Volume 6.5 FL (6.5-10.1) 6.7 FL (6.5-10.1) Neutrophils (%) (Auto) % (45.0-75.0) % (45.0-75.0) Lymphocytes (%) (Auto) % (20.0-45.0) % (20.0-45.0) Monocytes (%) (Auto) % (1.0-10.0) % (1.0-10.0) Eosinophils (%) (Auto) % (0.0-3.0) % (0.0-3.0) Basophils (%) (Auto) % (0.0-2.0) % (0.0-2.0) Differential Total Cells Counted 100 100 Neutrophils % (Manual) 83 % (45-75) H 85 % (45-75) H Lymphocytes % (Manual) 14 % (20-45) L 6 % (20-45) L Monocytes % (Manual) 1 % (1-10) 8 % (1-10) Eosinophils % (Manual) 0 % (0-3) 1 % (0-3) Basophils % (Manual) 0 % (0-2) 0 % (0-2) Band Neutrophils 2 % (0-8) 0 % (0-8) Platelet Estimate Adequate Adequate Platelet Morphology Normal Normal Sodium Level 139 MMOL/L (136-145) Potassium Level 4.3 MMOL/L (3.5-5.1) Chloride Level 106 MMOL/L (98-107) Carbon Dioxide Level 26 MMOL/L (21-32) Anion Gap 7 mmol/L (5-15) Blood Urea Nitrogen 9 mg/dL (7-18) Creatinine 0.8 MG/DL (0.55-1.30) Estimat Glomerular Filtration Rate > 60 mL/min (>60) Glucose Level 185 MG/DL (74-106) H Calcium Level 8.4 MG/DL (8.5-10.1) L Intake and Output 11/19/17 11/20/17 19:00 07:00 Intake Total 4000 ml 2050 ml Output Total 1910 ml 1320 ml Balance 2090 ml 730 ml Intake Oral 240 ml IV Total 2100 ml 1810 ml Blood Product 400 ml Other 1500 ml Output Urine Total 910 ml 900 ml Drainage Total 420 ml Estimated Blood Loss 1000 ml Assessment/Plan Problem List: (1) Lumbar pain Assessment & Plan: see pain management note (2) Obesity (3) HTN (hypertension) Assessment & Plan: hold antihypertensive medication post op (4) Depression (5) Opiate dependence (6) Diastolic dysfunction with heart failure (7) Spinal stenosis, lumbar region with neurogenic claudication Assessment & Plan: S/P multi level lumbar spine fusion and laminectomy on -see surgery note. Status: tolerating diet JEAN-PAUL LANDAVERDE Nov 20, 2017 19:43
[2017-11-20 20:00] VITALS: BP 125/57
[2017-11-20] MEDS: Topiramate 100mg tab ORAL SCH (22:20)
[2017-11-20] MEDS: ARIPiprazole 10mg tab ORAL SCH (22:21)
[2017-11-20] MEDS: PCA HYDROmorphone 1mg/ml 30 ML IV PRN (22:28)
[2017-11-21] VITALS (7 sets, daily range): BP systolic 102–135; BP diastolic 57–73
[2017-11-21] MEDS: Hydromorphone 0.5mg/0.5ml inj SUBQ PRN (01:01)
[2017-11-21] MEDS: oxyCODONE 5mg IR tab ORAL PRN ×2 (04:24→18:01)
[2017-11-21] MEDS: PCA shift volume MISC SCH (07:11)
[2017-11-21 07:45] LABS: HEMATOCRIT 21.7 % (37.0-47.0); HEMOGLOBIN 7.4 G/DL (12.0-16.0); MEAN CORPUSCULAR VOLUME 93 FL (80-99); PLATELET COUNT 181 K/UL (150-450); RED BLOOD COUNT 2.35 M/UL (4.20-5.40); RED CELL DISTRIBUTION WIDTH 11.2 % (11.6-14.8); WHITE BLOOD COUNT 11.8 K/UL (4.8-10.8)
[2017-11-21] MEDS: Docusate 100mg cap ORAL SCH ×2 (09:30→18:01)
[2017-11-21] MEDS: MS Contin 15mg tab ORAL SCH ×2 (09:31→20:06)
[2017-11-21] MEDS: D5 1/2NS 1,000 ML IV SCH (10:26)
--- NOTE | 2017-11-21 12:58 | Orthopedic Spine Progress Note ---
Ortho Spine - Progress Note Subjective Symptoms: c/o post-op back pain, improved Objective Vital Signs: Last 24 Hour Vital Signs Date Time Temp Pulse Resp B/P (MAP) Pulse Ox O2 Delivery O2 Flow Rate FiO2 11/21/17 12:00 98.8 107 20 116/57 97 11/21/17 08:00 18 11/21/17 08:00 98.6 103 20 108/59 97 11/21/17 04:00 18 11/21/17 04:00 98.2 120 19 135/64 99 11/21/17 00:00 18 11/21/17 00:00 97.9 116 19 123/71 97 11/20/17 22:28 18 11/20/17 20:00 18 11/20/17 20:00 99.0 111 20 125/57 99 Room Air 11/20/17 16:00 98.6 100 19 90/58 96 11/20/17 16:00 17 I&O: Intake and Output 11/20/17 11/21/17 19:00 07:00 Intake Total 720 ml 650 ml Output Total 300 ml 140 ml Balance 420 ml 510 ml Intake Oral 720 ml IV Total 650 ml Drainage Total 300 ml 140 ml # Voids 3 Drains: hemovac Neuro Status: normal Additional Comments: cxr no PTX Assessment Procedure Performed: xlif l12, LSF t10 to L2, Revision hardware L23, laminectomy L1 and L2 Plan Plan: PT, pain management, continue antibiotics, continue drain Additional Comments: 2 u PRBC KINA CHONG Nov 21, 2017 12:58
--- NOTE | 2017-11-21 15:15 | Progress Note ---
DATE: 11/21/2017 ACUTE PAIN MANAGEMENT PHYSICIAN PROGRESS NOTE MEDICATIONS: Medication administration record reviewed. Medications include Tylenol, Mylanta, Abilify, Soma, intravenous fluids, WEB DESIGNER Dilaudid, Benadryl, Colace, Prozac, milk of magnesia, MS Contin, Narcan, Zofran, oxycodone, subcutaneous Dilaudid, Protonix, Chloraseptic, Phenergan, Topamax and Ambien. LABORATORY AND DIAGNOSTIC DATA: Laboratory studies shows hemoglobin of 7.4, white count of 12, hematocrit 22 and platelets 181. Chemistry from yesterday 11/20/2017 shows sodium 139, potassium 4.3, chloride 106, bicarbonate 26, BUN 9, creatinine 0.8 and glucose 185. Calcium 8.4. Vital signs, pulse 103, afebrile, blood pressure 108/59, oxygen saturation 97% on room air and respiration rate 18. I saw the patient at bedside. I discussed the case with the surgeon, Dr. Jones along with the charge nurse, LIZZETH Ramirez. The patient is burping, but not passing positive flatus. She has been advanced to regular diet already. She has no nausea symptoms. Because she had a gastric bypass sleeve last year, her oral intake is adequate for liquids, but her diet has very specific restrictions. I have asked the hospital dietitian to visit the patient to improve her oral intake. Use of protein shakes may be beneficial. At home, the patient does use Colace as a stool softener, but does not use other laxatives, despite her chronic usage of high dose MS Contin. At this time, 48 hours after surgery, I will discontinue the WEB DESIGNER Dilaudid unit. The patient does have breakthrough doses of oxycodone along with Soma and subcutaneous Dilaudid for breakthrough. She will continue on her MS Contin q.8 h. around the clock, 30 mg, which has been working adequately. The patient states that her pain control is adequately controlled and is pleased with the current analgesic regimen. The patient does have sequential compression pneumatic devices in place, which I encourage for DVT prophylaxis. The patient has been ambulating with physical therapy and I would encourage continued ambulation as much as possible. The patient states that she already at home has a front wheel walker, raised toilet seat and a shower chair. The patient does see an outpatient pain management doctor for MS Contin. After this extensive surgery, I have left the patient a prescription for 90 tablets of oxycodone instant release 15 mg tablets along with 40 tablets of Soma for breakthrough pain. The patient promises that she will discuss these additional prescription for pain medications with her chronic outpatient pain doctor, who will likely understanding the extra medications needed after this extensive lumbar spine surgery. I did encourage continued incentive spirometer usage, as this patient does have a body mass index of 33. 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 Overall, the patient is progressing quite well. The patient continues to be anemic. She received one unit of packed red blood cells yesterday for hemoglobin of 7.1. Even after the one unit of packed red blood cells, her hemoglobin this morning 7.4. The hospitalist has ordered for further blood transfusions. I agree with this in this spine surgery patient. The Hemovac drain continues to have significant output. Output overnight was 140 mL. The lumbar spine drain will remain in place for now. Dr. Garces will evaluate the patient later today. Rick Song M.D. DR: NIRMAL JOB#: [id number] CC:
--- NOTE | 2017-11-21 19:47 | Internal Med Progress Note ---
Subjective Date of Service: Nov 21, 2017 Physician Name LandaverdeJean-Paul Attending Physician Daniel Jones Current Medications Medications (Trade) Dose Ordered Sig/Christa Route PRN Reason Start Time Stop Time Status Last Admin Dose Admin Acetaminophen (Tylenol) 650 mg Q4H PRN ORAL headache or temp>101 11/19/17 20:30 12/19/17 20:29 11/21/17 11:16 Al Hydroxide/Mg Hydroxide (Mylanta) 30 ml Q6H PRN ORAL GERD 11/19/17 20:45 12/19/17 20:44 Aripiprazole (Abilify) 20 mg QHS ORAL 11/19/17 21:00 12/19/17 20:59 11/20/17 22:21 Carisoprodol (Soma) 350 mg Q8H PRN ORAL SPASM 11/19/17 20:45 12/19/17 20:44 Diphenhydramine HCl (Benadryl) 25 mg Q6H PRN ORAL Itching 11/19/17 20:45 12/19/17 20:44 Docusate Sodium (Colace) 100 mg TWICE A DAY ORAL 11/19/17 20:30 12/19/17 20:29 11/21/17 18:01 Fluoxetine HCl (PROzac) 40 mg DAILY ORAL 11/20/17 09:00 12/20/17 08:59 11/21/17 09:30 Hydromorphone HCl (Dilaudid) 1 mg Q3H PRN SUBQ Severe Breakthru Pain (>7) 11/20/17 14:45 11/27/17 14:44 11/21/17 01:01 Magnesium Hydroxide (Mom) 30 ml QIDPRN PRN ORAL Constipation 11/19/17 20:30 12/19/17 20:29 Morphine Sulfate (MS Contin) 30 mg Q12HR ORAL 11/19/17 23:00 11/26/17 22:59 11/21/17 09:31 Ondansetron HCl (Zofran) 4 mg Q4H PRN IVP Nausea & Vomiting 11/19/17 21:00 12/19/17 20:59 Oxycodone HCl (Roxicodone) 10 mg Q3H PRN ORAL Moderate Breakthru Pain (5-7) 11/19/17 20:45 11/26/17 20:44 11/21/17 18:01 Pantoprazole (Protonix) 40 mg BEDTIME ORAL 11/19/17 21:00 12/19/17 20:59 11/20/17 22:20 Phenol/Menthol (Chloraseptic) 1 spray Q3H PRN ORAL sore throat 11/19/17 21:00 12/19/17 20:59 Promethazine HCl (Phenergan Supp) 12.5 mg Q12H PRN RECTAL Nausea & Vomiting 11/19/17 20:45 12/19/17 20:44 Topiramate (Topamax) 100 mg QHS ORAL 11/19/17 22:00 12/19/17 21:59 11/20/17 22:20 Zolpidem Tartrate (Ambien) 5 mg HSPRN PRN ORAL Insomnia 11/19/17 21:00 11/26/17 20:59 Allergies: Coded Allergies: ADHESIVE TAPE (Verified Allergy, Severe, blisters, rash , 11/18/17) CITALOPRAM (Verified Allergy, Severe, sob, asthma attack, 11/18/17) IODINATED CONTRAST- ORAL AND IV DYE (Verified Allergy, Severe, anaphylactic shock, 11/18/17) LATEX (Verified Allergy, Severe, sob, rash, hives, 11/18/17) SULFA (SULFONAMIDE ANTIBIOTICS) (Verified Allergy, Severe, anaphylactic shock , 11/18/17) ROS Limited/Unobtainable: No Constitutional: Reports: no symptoms HEENT: Reports: no symptoms Cardiovascular: Reports: no symptoms Respiratory: Reports: no symptoms Gastrointestinal/Abdominal: Reports: no symptoms Genitourinary: Reports: no symptoms Neurologic/Psychiatric: Reports: no symptoms Subjective 62 YO F admitted for chronic lumbar spine pain. S/P multi-level lumbar spine fusion and laminectomy 11/19/17. Cover for Int Reji-Dr Conley. Objective Last Vital Signs Date Time Temp Pulse Resp B/P (MAP) Pulse Ox O2 Delivery O2 Flow Rate FiO2 11/21/17 16:00 98.0 103 20 102/57 100 11/20/17 20:00 Room Air 11/20/17 04:30 2.0 Laboratory Tests Test 11/21/17 04:50 White Blood Count 11.8 K/UL (4.8-10.8) H Red Blood Count 2.35 M/UL (4.20-5.40) L Hemoglobin 7.4 G/DL (12.0-16.0) L Hematocrit 21.7 % (37.0-47.0) L Mean Corpuscular Volume 93 FL (80-99) Mean Corpuscular Hemoglobin 31.5 PG (27.0-31.0) H Mean Corpuscular Hemoglobin Concent 34.0 G/DL (32.0-36.0) Red Cell Distribution Width 11.2 % (11.6-14.8) L Platelet Count 181 K/UL (150-450) Mean Platelet Volume 6.6 FL (6.5-10.1) Neutrophils (%) (Auto) % (45.0-75.0) Lymphocytes (%) (Auto) % (20.0-45.0) Monocytes (%) (Auto) % (1.0-10.0) Eosinophils (%) (Auto) % (0.0-3.0) Basophils (%) (Auto) % (0.0-2.0) Differential Total Cells Counted 100 Neutrophils % (Manual) 91 % (45-75) H Lymphocytes % (Manual) 3 % (20-45) L Monocytes % (Manual) 6 % (1-10) Eosinophils % (Manual) 0 % (0-3) Basophils % (Manual) 0 % (0-2) Band Neutrophils 0 % (0-8) Platelet Estimate Adequate Platelet Morphology Normal Hypochromasia 3+ Anisocytosis 1+ Spherocytes 2+ Microbiology Date/Time Source Procedure Growth Status 11/19/17 07:45 Nasal Nares MRSA Culture - Final NO METHICILLIN RESISTANT STAPH AUREUS... Complete Intake and Output 11/20/17 11/21/17 19:00 07:00 Intake Total 720 ml 650 ml Output Total 300 ml 140 ml Balance 420 ml 510 ml Intake Oral 720 ml IV Total 650 ml Drainage Total 300 ml 140 ml # Voids 3 Objective General Appearance: WD/WN, alert, moderate distress, obese EENT: PERRL/EOMI, normal ENT inspection Neck: non-tender, normal alignment, supple, normal inspection Cardiovascular: normal peripheral pulses, normal rate, regular rhythm, no gallop/murmur, no JVD Respiratory/Chest: chest wall non-tender, lungs clear, normal breath sounds, no respiratory distress, no accessory muscle use Abdomen: normal bowel sounds, non tender, soft, no organomegaly, no mass Extremities: normal range of motion, non-tender Neurologic: small wind energy installer II-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 (8) Anemia Assessment & Plan: S/P transfusion 2 units PRBC 11/21/17 Status: progressing JEAN-PAUL LANDAVERDE Nov 21, 2017 19:47
[2017-11-21] MEDS: Topiramate 100mg tab ORAL SCH (20:04)
[2017-11-21] MEDS: ARIPiprazole 10mg tab ORAL SCH (20:04)
[2017-11-22] MEDS: oxyCODONE 5mg IR tab ORAL PRN ×2 (00:34→21:08)
[2017-11-22] MEDS: Hydromorphone 0.5mg/0.5ml inj SUBQ PRN ×2 (04:10→11:49)
[2017-11-22 04:57] VITALS: BP 112/61
[2017-11-22] MEDS: MS Contin 15mg tab ORAL SCH ×2 (07:59→17:31)
[2017-11-22] MEDS: Docusate 100mg cap ORAL SCH ×2 (07:59→17:30)
[2017-11-22 08:06] LABS: BASOPHILS % (AUTO) 0.4 % (0.0-2.0); EOSINOPHILS % (AUTO) 1.6 % (0.0-3.0); HEMATOCRIT 26.8 % (37.0-47.0); HEMOGLOBIN 9.4 G/DL (12.0-16.0); LYMPHOCYTES % (AUTO) 7.6 % (20.0-45.0); MEAN CORPUSCULAR VOLUME 93 FL (80-99); MONOCYTES % (AUTO) 11.1 % (1.0-10.0); NEUTROPHILS % (AUTO) 79.3 % (45.0-75.0); PLATELET COUNT 209 K/UL (150-450); RED BLOOD COUNT 2.88 M/UL (4.20-5.40); RED CELL DISTRIBUTION WIDTH 11.3 % (11.6-14.8); WHITE BLOOD COUNT 10.4 K/UL (4.8-10.8)
[2017-11-22 08:44] VITALS: BP 114/58
[2017-11-22] MEDS ORDERED: Simethicone 80mg tab ORAL PRN (10:15)
[2017-11-22] MEDS ORDERED: Simethicone 80mg tab ORAL ONE (10:17)
[2017-11-22 11:47] VITALS: BP 115/69
--- NOTE | 2017-11-22 11:47 | Orthopedic Spine Progress Note ---
Ortho Spine - Progress Note Subjective Symptoms: c/o post-op back pain - with thigh nimbness tingling intermittent bilat Additional Comments: B mild hand swelling numbness BL hand c6 distrib Objective Vital Signs: Last 24 Hour Vital Signs Date Time Temp Pulse Resp B/P (MAP) Pulse Ox O2 Delivery O2 Flow Rate FiO2 11/22/17 08:58 98.5 11/22/17 08:58 98.5 11/22/17 08:44 98.5 118 20 114/58 98 11/22/17 04:57 98.9 109 19 112/61 97 11/21/17 23:57 98.7 110 17 120/73 97 11/21/17 20:56 98.8 116 18 115/71 97 11/21/17 16:00 98.0 103 20 102/57 100 11/21/17 12:00 98.8 107 20 116/57 97 I&O: Intake and Output 11/21/17 11/22/17 19:00 07:00 Intake Total 240 ml 240 ml Output Total 115 ml Balance 240 ml 125 ml Intake Oral 240 ml 240 ml Drainage Total 115 ml # Voids 2 Wound: intact Drains: hemovac Neuro Status: other - normal BLE, L hand Med N numbness, but no tinel Assessment Procedure Performed: xlif l12, LSF t10 to L2, Revision hardware L23, laminectomy L1 and L2 Plan Plan: PT, pain management, d/c drain Additional Comments: spoke with jaci to tom B Hand swelling KINA CHONG Nov 22, 2017 11:47
[2017-11-22 16:25] VITALS: BP 128/76
--- NOTE | 2017-11-22 17:09 | Internal Med Progress Note ---
Subjective Physician Name Win Conley Attending Physician Daniel Jones Current Medications Medications (Trade) Dose Ordered Sig/Christa Route PRN Reason Start Time Stop Time Status Last Admin Dose Admin Acetaminophen (Tylenol) 650 mg Q4H PRN ORAL headache or temp>101 11/19/17 20:30 12/19/17 20:29 11/21/17 11:16 Al Hydroxide/Mg Hydroxide (Mylanta) 30 ml Q6H PRN ORAL GERD 11/19/17 20:45 12/19/17 20:44 Aripiprazole (Abilify) 20 mg QHS ORAL 11/19/17 21:00 12/19/17 20:59 11/21/17 20:04 Carisoprodol (Soma) 350 mg Q8H PRN ORAL SPASM 11/19/17 20:45 12/19/17 20:44 11/22/17 08:00 Diazepam (Valium) 5 mg QHS ORAL 11/22/17 21:00 11/29/17 20:59 Diphenhydramine HCl (Benadryl) 25 mg Q6H PRN ORAL Itching 11/19/17 20:45 12/19/17 20:44 Docusate Sodium (Colace) 100 mg TWICE A DAY ORAL 11/19/17 20:30 12/19/17 20:29 11/22/17 07:59 Fluoxetine HCl (PROzac) 40 mg DAILY ORAL 11/20/17 09:00 12/20/17 08:59 11/22/17 07:59 Hydromorphone HCl (Dilaudid) 1 mg Q3H PRN SUBQ Severe Breakthru Pain (>7) 11/20/17 14:45 11/27/17 14:44 11/22/17 11:49 Magnesium Hydroxide (Mom) 30 ml QIDPRN PRN ORAL Constipation 11/19/17 20:30 12/19/17 20:29 Morphine Sulfate (MS Contin) 30 mg Q12H ORAL 11/22/17 18:00 11/29/17 17:59 Ondansetron HCl (Zofran) 4 mg Q4H PRN IVP Nausea & Vomiting 11/19/17 21:00 12/19/17 20:59 Oxycodone HCl (Roxicodone) 10 mg Q3H PRN ORAL Moderate Breakthru Pain (5-7) 11/19/17 20:45 11/26/17 20:44 11/22/17 00:34 Pantoprazole (Protonix) 40 mg BEDTIME ORAL 11/19/17 21:00 12/19/17 20:59 11/21/17 20:05 Phenol/Menthol (Chloraseptic) 1 spray Q3H PRN ORAL sore throat 11/19/17 21:00 12/19/17 20:59 Promethazine HCl (Phenergan Supp) 12.5 mg Q12H PRN RECTAL Nausea & Vomiting 11/19/17 20:45 12/19/17 20:44 Simethicone (Mylicon) 80 mg Q8H PRN ORAL gas bloating 11/22/17 10:15 12/22/17 10:14 Topiramate (Topamax) 100 mg QHS ORAL 11/19/17 22:00 12/19/17 21:59 11/21/17 20:04 Zolpidem Tartrate (Ambien) 5 mg HSPRN PRN ORAL Insomnia 11/19/17 21:00 11/26/17 20:59 Allergies: Coded Allergies: ADHESIVE TAPE (Verified Allergy, Severe, blisters, rash , 11/18/17) CITALOPRAM (Verified Allergy, Severe, sob, asthma attack, 11/18/17) IODINATED CONTRAST- ORAL AND IV DYE (Verified Allergy, Severe, anaphylactic shock, 11/18/17) LATEX (Verified Allergy, Severe, sob, rash, hives, 11/18/17) SULFA (SULFONAMIDE ANTIBIOTICS) (Verified Allergy, Severe, anaphylactic shock , 11/18/17) Subjective awake, responsive, NAD, C/O hands edema Objective Last Vital Signs Date Time Temp Pulse Resp B/P (MAP) Pulse Ox O2 Delivery O2 Flow Rate FiO2 11/22/17 16:25 99.4 110 19 128/76 100 11/20/17 20:00 Room Air 11/20/17 04:30 2.0 Laboratory Tests Test 11/22/17 05:35 White Blood Count 10.4 K/UL (4.8-10.8) Red Blood Count 2.88 M/UL (4.20-5.40) L Hemoglobin 9.4 G/DL (12.0-16.0) L Hematocrit 26.8 % (37.0-47.0) L Mean Corpuscular Volume 93 FL (80-99) Mean Corpuscular Hemoglobin 32.6 PG (27.0-31.0) H Mean Corpuscular Hemoglobin Concent 35.0 G/DL (32.0-36.0) Red Cell Distribution Width 11.3 % (11.6-14.8) L Platelet Count 209 K/UL (150-450) Mean Platelet Volume 6.3 FL (6.5-10.1) L Neutrophils (%) (Auto) 79.3 % (45.0-75.0) H Lymphocytes (%) (Auto) 7.6 % (20.0-45.0) L Monocytes (%) (Auto) 11.1 % (1.0-10.0) H Eosinophils (%) (Auto) 1.6 % (0.0-3.0) Basophils (%) (Auto) 0.4 % (0.0-2.0) Intake and Output 11/21/17 11/22/17 19:00 07:00 Intake Total 240 ml 240 ml Output Total 115 ml Balance 240 ml 125 ml Intake Oral 240 ml 240 ml Drainage Total 115 ml # Voids 2 Objective General: No acute distress, awake and alert HEENT: NCAT, sclera anicteric, PERRL, EOMI. Neck: Supple, no significant jugular venous distention, Lungs: Good inspiratory effort, no accessory muscle use, no Wheeze or Rales. Heart: Regular rate and rhythm, normal S1/S2, no murmurs Abdomen: soft, nontender, nondistended. Normoactive bowel sounds. Extremities: No Cyanosis , clubbing, Hands mild edema. Neuro: A&O x 3, Able to move all extremities Back: Lumbar dressing intact Skin: warm, no rashes or lesions Psych: Normal mood and affect Assessment/Plan Assessment/Plan Problem List: (1) Lumbar pain 1.Status post prior L2 through S1 fusion, status post XLIF fusion anteriorly, L1 -L2 performed earlier in the day. 2. Spinal stenosis, L1-L2. 3. Compression fracture, chronic at T12. OPERATIONS PERFORMED on 11/19/2017: 1. Posterior spinal fusion, T10, T11, T12, L1, L2. 2. Segmental instrumentation with dominos attached to the prior construct at L2 through S1. 3. Revision of hardware, L2, L3, and L4. 4. Laminectomy, complete L1. 5. Redo partial laminectomy, L2. (2) Obesity (3) HTN (hypertension) (4) Depression (5) Opiate dependence (6) Diastolic dysfunction with heart failure (7) Spinal stenosis, lumbar region with neurogenic claudication (8) Anemia Assessment & Plan: S/P transfusion 2 units PRBC 11/21/17 Plan: Lasix X 1 dose Monitor Labs in AM wound care Win Conley MD Nov 22, 2017 17:09
--- NOTE | 2017-11-22 17:15 | Progress Note ---
DATE: 11/22/2017 ACUTE PAIN MANAGEMENT PHYSICIAN PROGRESS NOTE LABORATORY DATA: Laboratory studies from 11/22/2017 showed a white count of 10, hematocrit 27, hemoglobin 9, and platelets 209,000. PHYSICAL EXAMINATION: VITAL SIGNS: Afebrile, pulse 118, respirations 20, blood pressure 114/58, and oxygen saturation 98%. MEDICATIONS: Medication administration record reviewed. Medications include Colace, Protonix, Prozac, MS Contin 30 mg q.12 h., Abilify, and Topamax. P.r.n. medications include Tylenol, milk of magnesia, Soma, Benadryl, Mylanta, Zofran, Phenergan, Chloraseptic, oxycodone, Ambien, and Dilaudid. I saw the patient at the bedside. Earlier today, the surgeon, Dr. Jones, evaluated the drain output, which was [address] Jones decided to keep the indwelling lumbar spine drain catheter in place for now. The patient still states that she has not passed flatus. I will dose her with simethicone 80 mg. She denies nausea or emesis. The dietitian did visit the patient yesterday and ordered protein shakes as well as special fluids for this patient, status post gastric sleeve last year. The patient walked over 100 feet with Physical Therapy. I saw the physical therapist after the patient walked and the patient did well; however, she looks exhausted. The patient then admitted that she forgot to mention that she chronically and every night uses Dalmane, which is a prescription benzodiazepine flurazepam. The patient had failed to mention this medication for the past three days and it is not listed on any of her home medications. I asked the pharmacy in the hospital if they carry flurazepam, Dalmane. This medication is not on stock. I explained this to the patient, and she said that Valium should be effective. I have ordered Valium 5 mg at bedtime, which will be dosed around 9 p.m. I also rotated the timing of her MS Contin to 6 a.m. and 6 p.m. q.12 h. so that they will not these pills of MS Contin and Valium will not be administered simultaneously. The patient's pain seems to be adequately controlled off of the REHAB PHYSICIAN unit. I will continue her alternating with the p.r.n. doses of Soma, subcutaneous Dilaudid, and oxycodone as ordered. The patient's did supervisor opening and picking the prescription, which I provided for Soma and oxycodone. Of note, the patient is complaining of paresthesias in her second, third, and fourth left fingers. It is most likely due to a positioning effect during her hospital stay. The patient seems to be quite concerned and I told her to give herself time for this symptom to spontaneously resolve for now. The patient has been restarted on her preoperative psychiatric medications including Abilify and Prozac along with Topamax. Hopefully, the patient will be able to get better sleep and we will follow her drain output to determine discharge planning. Rick Song M.D. DR: JAYME JOB#: [id number] CC:
--- NOTE | 2017-11-22 18:01 | Procedure Note ---
DATE OF PROCEDURE: 11/22/2017 REMOVAL OF INDWELLING LUMBAR SPINE DRAIN HISTORY: I saw the patient at the bedside. I spoke with the surgeon, Dr. Daniel Jones regarding the output of the indwelling lumbar spine drain catheter from this patient's recent lumbar spine instrumentation surgery. Output from the drain was less than 40 mL over the past 18 hours. The patient was turned to the right lateral decubitus position. I removed the lumbar spine dressing revealing the lumbar spine incision clean and dry with no evidence for erythema or exudate. The Steri-Strips, which were holding in bilateral lumbar spine drain catheters, were removed without difficulty. With the Hemovac drain taken off of suction and at the end-expiration, both lumbar spine drain catheters were removed. Both tips were intact. Alcohol swab was applied generously to the drain hole site. Sterile 4 x 4 gauze was then applied over the drain hole site in the entire incision area. Finally, a sterile 4 x 4, and 6 x 6 island border gauze dressings were applied over the entire incision line and drain sites. There were no complications. iRck Song M.D. DR: NIRMAL JOB#: [id number] CC:
[2017-11-22 20:00] VITALS: BP 132/74
[2017-11-22] MEDS: ARIPiprazole 10mg tab ORAL SCH (21:07)
[2017-11-22] MEDS: Topiramate 100mg tab ORAL SCH (21:07)
[2017-11-22 21:30] VITALS: BP_SYST 117
[2017-11-23] VITALS: BP 99/53
[2017-11-23] MEDS: oxyCODONE 5mg IR tab ORAL PRN ×3 (03:47→13:40)
[2017-11-23 04:00] VITALS: BP_SYST 95; BP_SYST 98; BP_DIAS 51; BP_DIAS 55
[2017-11-23] MEDS: MS Contin 15mg tab ORAL SCH ×2 (06:30→18:48)
[2017-11-23 08:00] VITALS: BP 123/58
[2017-11-23 08:10] LABS: BASOPHILS % (AUTO) 0.7 % (0.0-2.0); EOSINOPHILS % (AUTO) 1.5 % (0.0-3.0); HEMATOCRIT 24.8 % (37.0-47.0); HEMOGLOBIN 8.5 G/DL (12.0-16.0); LYMPHOCYTES % (AUTO) 9.9 % (20.0-45.0); MEAN CORPUSCULAR VOLUME 93 FL (80-99); MONOCYTES % (AUTO) 12.2 % (1.0-10.0); NEUTROPHILS % (AUTO) 75.8 % (45.0-75.0); PLATELET COUNT 266 K/UL (150-450); RED BLOOD COUNT 2.66 M/UL (4.20-5.40); RED CELL DISTRIBUTION WIDTH 11.2 % (11.6-14.8); WHITE BLOOD COUNT 9.2 K/UL (4.8-10.8)
[2017-11-23] MEDS: Nystatin Susp 500,000 units/5ml ORAL SCH ×4 (08:37→21:52)
[2017-11-23] MEDS: Docusate 100mg cap ORAL SCH ×2 (08:38→18:47)
[2017-11-23 09:15] LABS: ANION GAP 5 mmol/L (5-15); BLOOD UREA NITROGEN 6 mg/dL (7-18); CALCIUM 8.9 MG/DL (8.5-10.1); CARBON DIOXIDE 31 MMOL/L (21-32); CHLORIDE 102 MMOL/L (98-107); CREATININE 0.7 MG/DL (0.55-1.30); PHOSPHORUS 3.2 MG/DL (2.5-4.9); POTASSIUM 3.3 MMOL/L (3.5-5.1); SODIUM 138 MMOL/L (136-145)
[2017-11-23 11:48] VITALS: BP 94/60
[2017-11-23 14:07] LABS: BASOPHILS % (AUTO) 0.6 % (0.0-2.0); EOSINOPHILS % (AUTO) 1.7 % (0.0-3.0); HEMATOCRIT 24.6 % (37.0-47.0); HEMOGLOBIN 8.2 G/DL (12.0-16.0); LYMPHOCYTES % (AUTO) 9.4 % (20.0-45.0); MEAN CORPUSCULAR VOLUME 93 FL (80-99); MONOCYTES % (AUTO) 12.5 % (1.0-10.0); NEUTROPHILS % (AUTO) 75.8 % (45.0-75.0); PLATELET COUNT 290 K/UL (150-450); RED BLOOD COUNT 2.65 M/UL (4.20-5.40); RED CELL DISTRIBUTION WIDTH 11.4 % (11.6-14.8)
--- NOTE | 2017-11-23 15:15 | Progress Note ---
DATE: 11/23/2017 ACUTE PAIN MANAGEMENT PHYSICIAN PROGRESS NOTE MEDICATIONS: Medication administration record reviewed. Medications include Ambien, Topamax, simethicone, Phenergan, Chloraseptic, Protonix, oxycodone, Zofran, nystatin, MS Contin, milk of magnesia, Dilaudid, Prozac, Colace, Benadryl, Valium, Soma, Abilify, Mylanta and Tylenol. LABORATORY AND DIAGNOSTIC DATA: Laboratory studies from this morning shows white count 9, hematocrit 25, hemoglobin 8.5 and platelets 260. Vital signs, shows T-max of 101.5 degrees last night at 10 p.m. and currently afebrile, pulse is 106, respirations 17, blood pressure 98/81, and oxygen saturation 98% on supplemental oxygen. I saw the patient at bedside with her . I discussed the case with the surgeon, Dr. Jones. Dr. Conley is following for Internal Medicine. The patient did develop oral thrush and I have ordered nystatin swish and swallow for the patient. The patient is sitting in the chair. She still states that she has not yet passed any flatus and does have abdominal bloating. She has no nausea and is eating food. I did encourage increased ambulation. I see no reason for there to be a problem with her bowel function after her lumbar spine procedure except for opioid-induced constipation. The patient continues with her MS-Contin q.12 h. She has been using her breakthrough doses of p.r.n. oxycodone and Soma for breakthrough pain. She also remains on Topamax, Prozac and Abilify for mood stability. I did start her on a Valium 5 mg at bedtime last night. She states that she is not overly sedated and the does not believe. She is overly sedated. However, this may be contributing to an episode of oxygen desaturation to 97% with no mental status changes however. I did ask the once again to please drop-off the prescription for Soma and oxycodone, which I provided several days ago so the patient can have these medications when she discharges to home. I will defer the patient's anemia and mild tachycardia and oxygenation to Dr. Conley and his team. The patient states that Dilaudid has been not very effective, so I will discontinue this medication from her MAR to simplify her analgesic regimen. I do recommend continued incentive spirometer usage aggressively with her recent low-grade fever. Rick Song M.D. DR: NIRMAL JOB#: [id number] CC:
--- NOTE | 2017-11-23 15:43 | Internal Med Progress Note ---
Subjective Date of Service: Nov 23, 2017 Physician Name LandaverdeJean-Paul erazo Attending Physician Daniel Jones Current Medications Medications (Trade) Dose Ordered Sig/Christa Route PRN Reason Start Time Stop Time Status Last Admin Dose Admin Acetaminophen (Tylenol) 650 mg Q4H PRN ORAL headache or temp>101 11/19/17 20:30 12/19/17 20:29 11/22/17 22:00 Al Hydroxide/Mg Hydroxide (Mylanta) 30 ml Q6H PRN ORAL GERD 11/19/17 20:45 12/19/17 20:44 Aripiprazole (Abilify) 20 mg QHS ORAL 11/19/17 21:00 12/19/17 20:59 11/22/17 21:07 Carisoprodol (Soma) 350 mg Q8H PRN ORAL SPASM 11/19/17 20:45 12/19/17 20:44 11/22/17 08:00 Diazepam (Valium) 5 mg QHS ORAL 11/22/17 21:00 11/29/17 20:59 11/22/17 22:00 Diphenhydramine HCl (Benadryl) 25 mg Q6H PRN ORAL Itching 11/19/17 20:45 12/19/17 20:44 Docusate Sodium (Colace) 100 mg TWICE A DAY ORAL 11/19/17 20:30 12/19/17 20:29 11/23/17 08:38 Fluoxetine HCl (PROzac) 40 mg DAILY ORAL 11/20/17 09:00 12/20/17 08:59 11/23/17 08:38 Magnesium Hydroxide (Mom) 30 ml QIDPRN PRN ORAL Constipation 11/19/17 20:30 12/19/17 20:29 Morphine Sulfate (MS Contin) 30 mg Q12H ORAL 11/22/17 18:00 11/29/17 17:59 11/23/17 06:30 Nystatin (Nystatin) 5 ml QID ORAL 11/23/17 09:00 11/30/17 08:59 11/23/17 13:39 Ondansetron HCl (Zofran) 4 mg Q4H PRN IVP Nausea & Vomiting 11/19/17 21:00 12/19/17 20:59 Oxycodone HCl (Roxicodone) 10 mg Q3H PRN ORAL Moderate Breakthru Pain (5-7) 11/19/17 20:45 11/26/17 20:44 11/23/17 13:40 Pantoprazole (Protonix) 40 mg BEDTIME ORAL 11/19/17 21:00 12/19/17 20:59 11/22/17 21:07 Phenol/Menthol (Chloraseptic) 1 spray Q3H PRN ORAL sore throat 11/19/17 21:00 12/19/17 20:59 Promethazine HCl (Phenergan Supp) 12.5 mg Q12H PRN RECTAL Nausea & Vomiting 11/19/17 20:45 12/19/17 20:44 Simethicone (Mylicon) 80 mg Q8H PRN ORAL gas bloating 11/22/17 10:15 12/22/17 10:14 11/23/17 03:46 Topiramate (Topamax) 100 mg QHS ORAL 11/19/17 22:00 12/19/17 21:59 11/22/17 21:07 Zolpidem Tartrate (Ambien) 5 mg HSPRN PRN ORAL Insomnia 11/19/17 21:00 11/26/17 20:59 Allergies: Coded Allergies: ADHESIVE TAPE (Verified Allergy, Severe, blisters, rash , 11/18/17) CITALOPRAM (Verified Allergy, Severe, sob, asthma attack, 11/18/17) IODINATED CONTRAST- ORAL AND IV DYE (Verified Allergy, Severe, anaphylactic shock, 11/18/17) LATEX (Verified Allergy, Severe, sob, rash, hives, 11/18/17) SULFA (SULFONAMIDE ANTIBIOTICS) (Verified Allergy, Severe, anaphylactic shock , 11/18/17) ROS Limited/Unobtainable: No Constitutional: Reports: no symptoms HEENT: Reports: no symptoms Cardiovascular: Reports: no symptoms Respiratory: Reports: no symptoms Gastrointestinal/Abdominal: Reports: no symptoms Genitourinary: Reports: no symptoms Neurologic/Psychiatric: Reports: no symptoms Subjective 62 YO F admitted for chronic lumbar spine pain. S/P multi-level lumbar spine fusion and laminectomy 11/19/17. Cover for Almita Conley. Objective Last Vital Signs Date Time Temp Pulse Resp B/P (MAP) Pulse Ox O2 Delivery O2 Flow Rate FiO2 11/23/17 11:48 98.4 108 18 94/60 98 Room Air 11/20/17 04:30 2.0 Laboratory Tests Test 11/23/17 07:40 11/23/17 13:50 White Blood Count 9.2 K/UL (4.8-10.8) 9.0 K/UL (4.8-10.8) Red Blood Count 2.66 M/UL (4.20-5.40) L 2.65 M/UL (4.20-5.40) L Hemoglobin 8.5 G/DL (12.0-16.0) L 8.2 G/DL (12.0-16.0) L Hematocrit 24.8 % (37.0-47.0) L 24.6 % (37.0-47.0) L Mean Corpuscular Volume 93 FL (80-99) 93 FL (80-99) Mean Corpuscular Hemoglobin 32.0 PG (27.0-31.0) H 31.0 PG (27.0-31.0) Mean Corpuscular Hemoglobin Concent 34.3 G/DL (32.0-36.0) 33.4 G/DL (32.0-36.0) Red Cell Distribution Width 11.2 % (11.6-14.8) L 11.4 % (11.6-14.8) L Platelet Count 266 K/UL (150-450) 290 K/UL (150-450) Mean Platelet Volume 5.9 FL (6.5-10.1) L 5.3 FL (6.5-10.1) L Neutrophils (%) (Auto) 75.8 % (45.0-75.0) H 75.8 % (45.0-75.0) H Lymphocytes (%) (Auto) 9.9 % (20.0-45.0) L 9.4 % (20.0-45.0) L Monocytes (%) (Auto) 12.2 % (1.0-10.0) H 12.5 % (1.0-10.0) H Eosinophils (%) (Auto) 1.5 % (0.0-3.0) 1.7 % (0.0-3.0) Basophils (%) (Auto) 0.7 % (0.0-2.0) 0.6 % (0.0-2.0) Sodium Level 138 MMOL/L (136-145) Potassium Level 3.3 MMOL/L (3.5-5.1) L Chloride Level 102 MMOL/L (98-107) Carbon Dioxide Level 31 MMOL/L (21-32) Anion Gap 5 mmol/L (5-15) Blood Urea Nitrogen 6 mg/dL (7-18) L Creatinine 0.7 MG/DL (0.55-1.30) Estimat Glomerular Filtration Rate > 60 mL/min (>60) Glucose Level 103 MG/DL (74-106) Calcium Level 8.9 MG/DL (8.5-10.1) Phosphorus Level 3.2 MG/DL (2.5-4.9) Magnesium Level 1.7 MG/DL (1.8-2.4) L Intake and Output 11/22/17 11/23/17 19:00 07:00 Intake Total 940 ml 240 ml Output Total 300 ml 900 ml Balance 640 ml -660 ml Intake Oral 940 ml 240 ml Output Urine Total 300 ml 900 ml # Voids 2 Objective General Appearance: WD/WN, alert, moderate distress, obese EENT: PERRL/EOMI, normal ENT inspection Neck: non-tender, normal alignment, supple, normal inspection Cardiovascular: normal peripheral pulses, normal rate, regular rhythm, no gallop/murmur, no JVD Respiratory/Chest: chest wall non-tender, lungs clear, normal breath sounds, no respiratory distress, no accessory muscle use Abdomen: normal bowel sounds, non tender, soft, no organomegaly, no mass Extremities: normal range of motion, non-tender 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 (8) Anemia Assessment & Plan: Worsening. S/P transfusion 2 units PRBC 11/21/17. Transfuse 1 unit PRBC today Status: not improved JEAN-PAUL LANDAVERDE Nov 23, 2017 15:43
[2017-11-23] MEDS ORDERED: DiphenhydrAMINE 50mg/ml Inj IVP ONE (16:00)
[2017-11-23] MEDS ORDERED: NS 500ML ONE ×2 (18:08→18:48)
[2017-11-23] MEDS ORDERED: D5 1/2NS 1000ml IV ONE ×2 (18:08→18:48)
[2017-11-23] MEDS ORDERED: Tubing Blood Filter IV ONE ×2 (18:08→18:48)
[2017-11-23] MEDS ORDERED: Tubing IV Secondary IV ONE (18:08)
[2017-11-23 18:53] VITALS: BP 121/60
[2017-11-23 20:00] VITALS: BP 103/58
[2017-11-23] MEDS ORDERED: Milk of Magnesia 30ml Ud ORAL PRN (20:30)
[2017-11-23] MEDS ORDERED: Zolpidem 5mg tab ORAL PRN (21:00)
[2017-11-23] MEDS ORDERED: Chloraseptic Spray 20mL Bottle ORAL PRN (21:00)
[2017-11-23] MEDS ORDERED: Topiramate 100mg tab ORAL SCH (21:00)
[2017-11-23] MEDS ORDERED: ARIPiprazole 10mg tab ORAL SCH (21:00)
[2017-11-23] MEDS ORDERED: Simethicone 80mg tab ORAL PRN (21:00)
[2017-11-24] VITALS: BP 104/60
[2017-11-24] MEDS: oxyCODONE 5mg IR tab ORAL PRN ×4 (02:11→23:14)
[2017-11-24 04:00] VITALS: BP 115/59
[2017-11-24] MEDS ORDERED: MS Contin 15mg tab ORAL SCH (06:00)
[2017-11-24 07:45] LABS: EOSINOPHILS % (AUTO) 2.5 % (0.0-3.0); HEMATOCRIT 25.3 % (37.0-47.0); HEMOGLOBIN 8.9 G/DL (12.0-16.0); LYMPHOCYTES % (AUTO) 9.9 % (20.0-45.0); MEAN CORPUSCULAR VOLUME 94 FL (80-99); MONOCYTES % (AUTO) 15.7 % (1.0-10.0); NEUTROPHILS % (AUTO) 70.8 % (45.0-75.0); PLATELET COUNT 287 K/UL (150-450); RED BLOOD COUNT 2.69 M/UL (4.20-5.40); RED CELL DISTRIBUTION WIDTH 11.4 % (11.6-14.8); WHITE BLOOD COUNT 8.2 K/UL (4.8-10.8)
[2017-11-24 08:00] VITALS: BP 100/59
[2017-11-24 08:17] LABS: ANION GAP 6 mmol/L (5-15); BLOOD UREA NITROGEN 7 mg/dL (7-18); CALCIUM 8.6 MG/DL (8.5-10.1); CARBON DIOXIDE 27 MMOL/L (21-32); CHLORIDE 102 MMOL/L (98-107); CREATININE 0.7 MG/DL (0.55-1.30); POTASSIUM 3.6 MMOL/L (3.5-5.1); SODIUM 135 MMOL/L (136-145)
[2017-11-24] MEDS ORDERED: Docusate 100mg cap ORAL SCH (09:00)
[2017-11-24] MEDS: Nystatin Susp 500,000 units/5ml ORAL SCH ×3 (09:01→20:39)
--- NOTE | 2017-11-24 11:58 | Orthopedic Spine Progress Note ---
Ortho Spine - Progress Note Subjective Symptoms: c/o post-op back pain, unchanged, other - constipated Objective Vital Signs: Last 24 Hour Vital Signs Date Time Temp Pulse Resp B/P (MAP) Pulse Ox O2 Delivery O2 Flow Rate FiO2 11/24/17 08:00 97.2 101 18 100/59 100 Room Air 11/24/17 08:00 105 11/24/17 04:00 93 11/24/17 04:00 98.0 105 18 115/59 100 Room Air 11/24/17 00:00 97.8 100 20 104/60 97 Room Air 11/24/17 00:00 100 11/23/17 20:00 104 11/23/17 20:00 98.4 103 20 103/58 97 Room Air 11/23/17 18:53 99.4 112 18 121/60 97 Room Air 11/23/17 17:50 99.4 11/23/17 17:50 99.4 I&O: Intake and Output 11/23/17 11/24/17 19:00 07:00 Intake Total 1080 ml Output Total 850 ml Balance 1080 ml -850 ml Intake Oral 1080 ml Output Urine Total 850 ml # Voids 3 3 Drains: none Neuro Status: normal Assessment Procedure Performed: xlif l12, LSF t10 to L2, Revision hardware L23, laminectomy L1 and L2 Plan Plan: PT Additional Comments: enema for KINA SAWANT Nov 24, 2017 11:58
[2017-11-24 12:00] VITALS: BP 121/65
[2017-11-24] MEDS ORDERED: Chloraseptic Spray 20mL Bottle ORAL PRN (15:00)
[2017-11-24 16:00] VITALS: BP 96/55
--- NOTE | 2017-11-24 17:09 | Internal Med Progress Note ---
Subjective Date of Service: Nov 24, 2017 Physician Name LandaverdeJean-Paul erazo Attending Physician Daniel Jones Current Medications Medications (Trade) Dose Ordered Sig/Christa Route PRN Reason Start Time Stop Time Status Last Admin Dose Admin Acetaminophen (Tylenol) 650 mg Q4H PRN ORAL headache or temp>101 11/24/17 16:30 2 20:29 11/24/17 17:00 Al Hydroxide/Mg Hydroxide (Mylanta) 30 ml Q6H PRN ORAL GERD 11/24/17 14:45 12/19/17 20:44 Aripiprazole (Abilify) 20 mg QHS ORAL 11/24/17 21:00 12/19/17 20:59 Carisoprodol (Soma) 350 mg Q8H PRN ORAL MUSCLE SPASM 11/24/17 20:45 12/19/17 20:44 Diazepam (Valium) 5 mg QHS ORAL 11/24/17 21:00 11/29/17 20:59 Diphenhydramine HCl (Benadryl) 25 mg Q6H PRN ORAL Itching 11/24/17 14:45 12/19/17 20:44 Docusate Sodium (Colace) 100 mg TWICE A DAY ORAL 11/24/17 18:00 12/19/17 20:29 Fluoxetine HCl (PROzac) 40 mg DAILY ORAL 11/25/17 09:00 12/20/17 08:59 Magnesium Hydroxide (Mom) 30 ml QIDPRN PRN ORAL Constipation 11/24/17 20:30 12/19/17 20:29 Morphine Sulfate (MS Contin) 30 mg Q12H ORAL 11/24/17 18:00 11/29/17 17:59 Nystatin (Nystatin) 5 ml QID ORAL 11/24/17 18:00 11/30/17 08:59 Ondansetron HCl (Zofran) 4 mg Q4H PRN IVP Nausea & Vomiting 11/24/17 17:00 12/19/17 20:59 Oxycodone HCl (Roxicodone) 10 mg Q3H PRN ORAL Moderate Breakthru Pain (5-7) 11/24/17 14:45 11/26/17 20:44 11/24/17 16:29 Pantoprazole (Protonix) 40 mg BEDTIME ORAL 11/24/17 21:00 12/19/17 20:59 Phenol/Menthol (Chloraseptic) 1 spray Q3H PRN ORAL sore throat 11/24/17 15:00 12/19/17 20:59 Promethazine HCl (Phenergan Supp) 12.5 mg Q12H PRN RECTAL Nausea & Vomiting 11/24/17 20:45 12/19/17 20:44 Simethicone (Mylicon) 80 mg Q8H PRN ORAL gas/bloating 11/24/17 21:00 12/23/17 20:59 Topiramate (Topamax) 100 mg QHS ORAL 11/24/17 21:00 12/19/17 21:59 Zolpidem Tartrate (Ambien) 5 mg HSPRN PRN ORAL Insomnia 11/24/17 21:00 11/26/17 20:59 Allergies: Coded Allergies: ADHESIVE TAPE (Verified Allergy, Severe, blisters, rash , 11/18/17) CITALOPRAM (Verified Allergy, Severe, sob, asthma attack, 11/18/17) IODINATED CONTRAST- ORAL AND IV DYE (Verified Allergy, Severe, anaphylactic shock, 11/18/17) LATEX (Verified Allergy, Severe, sob, rash, hives, 11/18/17) SULFA (SULFONAMIDE ANTIBIOTICS) (Verified Allergy, Severe, anaphylactic shock , 11/18/17) ROS Limited/Unobtainable: No Constitutional: Reports: no symptoms HEENT: Reports: no symptoms Cardiovascular: Reports: no symptoms Respiratory: Reports: no symptoms Gastrointestinal/Abdominal: Reports: constipated Genitourinary: Reports: no symptoms Neurologic/Psychiatric: Reports: no symptoms Subjective 62 YO F admitted for chronic lumbar spine pain. S/P multi-level lumbar spine fusion and laminectomy 11/19/17. Cover for Int Reji-Dr Conley. C/O constipation Objective Last Vital Signs Date Time Temp Pulse Resp B/P (MAP) Pulse Ox O2 Delivery O2 Flow Rate FiO2 11/24/17 16:00 98.7 109 19 96/55 97 Room Air 11/20/17 04:30 2.0 Laboratory Tests Test 11/24/17 06:00 11/24/17 15:30 White Blood Count 8.2 K/UL (4.8-10.8) Red Blood Count 2.69 M/UL (4.20-5.40) L Hemoglobin 8.9 G/DL (12.0-16.0) L Hematocrit 25.3 % (37.0-47.0) L Mean Corpuscular Volume 94 FL (80-99) Mean Corpuscular Hemoglobin 32.9 PG (27.0-31.0) H Mean Corpuscular Hemoglobin Concent 35.0 G/DL (32.0-36.0) Red Cell Distribution Width 11.4 % (11.6-14.8) L Platelet Count 287 K/UL (150-450) Mean Platelet Volume 5.7 FL (6.5-10.1) L Neutrophils (%) (Auto) 70.8 % (45.0-75.0) Lymphocytes (%) (Auto) 9.9 % (20.0-45.0) L Monocytes (%) (Auto) 15.7 % (1.0-10.0) H Eosinophils (%) (Auto) 2.5 % (0.0-3.0) Basophils (%) (Auto) 1.0 % (0.0-2.0) Sodium Level 135 MMOL/L (136-145) L Potassium Level 3.6 MMOL/L (3.5-5.1) Chloride Level 102 MMOL/L (98-107) Carbon Dioxide Level 27 MMOL/L (21-32) Anion Gap 6 mmol/L (5-15) Blood Urea Nitrogen 7 mg/dL (7-18) Creatinine 0.7 MG/DL (0.55-1.30) Estimat Glomerular Filtration Rate > 60 mL/min (>60) Glucose Level 100 MG/DL (74-106) Calcium Level 8.6 MG/DL (8.5-10.1) Stool Occult Blood Pending Intake and Output 11/23/17 11/24/17 19:00 07:00 Intake Total 1080 ml Output Total 850 ml Balance 1080 ml -850 ml Intake Oral 1080 ml Output Urine Total 850 ml # Voids 3 3 Objective General Appearance: WD/WN, alert, moderate distress, obese EENT: PERRL/EOMI, normal ENT inspection Neck: non-tender, normal alignment, supple, normal inspection Cardiovascular: normal peripheral pulses, normal rate, regular rhythm, no gallop/murmur, no JVD Respiratory/Chest: chest wall non-tender, lungs clear, normal breath sounds, no respiratory distress, no accessory muscle use Abdomen: normal bowel sounds, non tender, soft, no organomegaly, no mass Extremities: normal range of motion, non-tender 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 (8) Anemia Assessment & Plan: Worsening. S/P transfusion 2 units PRBC 11/21/17. Transfuse 1 unit PRBC today (9) Constipation Assessment & Plan: Fleets enema prn Status: progressing JEAN-PAUL LANDAVERDE Nov 24, 2017 17:09
[2017-11-24] MEDS: Docusate 100mg cap ORAL SCH (18:00)
[2017-11-24] MEDS: MS Contin 15mg tab ORAL SCH (18:35)
[2017-11-24 20:00] VITALS: BP 139/74
[2017-11-24] MEDS ORDERED: Milk of Magnesia 30ml Ud ORAL PRN (20:30)
[2017-11-24] MEDS ORDERED: Simethicone 80mg tab ORAL PRN (21:00)
[2017-11-24] MEDS ORDERED: Topiramate 100mg tab ORAL SCH (21:00)
[2017-11-24] MEDS ORDERED: Zolpidem 5mg tab ORAL PRN (21:00)
[2017-11-24] MEDS ORDERED: ARIPiprazole 10mg tab ORAL SCH (21:00)
[2017-11-25 04:00] VITALS: BP 109/61
[2017-11-25] MEDS: MS Contin 15mg tab ORAL SCH (05:09)
[2017-11-25] MEDS: oxyCODONE 5mg IR tab ORAL PRN ×2 (07:29→13:28)
[2017-11-25 08:00] VITALS: BP 123/70
[2017-11-25] MEDS: Docusate 100mg cap ORAL SCH (08:20)
[2017-11-25] MEDS: Nystatin Susp 500,000 units/5ml ORAL SCH ×2 (08:20→12:55)
[2017-11-25 10:11] LABS: BASOPHILS % (AUTO) 0.9 % (0.0-2.0); HEMOGLOBIN 9.3 G/DL (12.0-16.0); LYMPHOCYTES % (AUTO) 10.8 % (20.0-45.0); MEAN CORPUSCULAR VOLUME 94 FL (80-99); MONOCYTES % (AUTO) 13.3 % (1.0-10.0); NEUTROPHILS % (AUTO) 71.9 % (45.0-75.0); PLATELET COUNT 399 K/UL (150-450); RED BLOOD COUNT 2.97 M/UL (4.20-5.40); RED CELL DISTRIBUTION WIDTH 11.4 % (11.6-14.8)
[2017-11-25 10:28] LABS: ANION GAP 10 mmol/L (5-15); BLOOD UREA NITROGEN 7 mg/dL (7-18); CALCIUM 8.7 MG/DL (8.5-10.1); CARBON DIOXIDE 28 MMOL/L (21-32); CHLORIDE 100 MMOL/L (98-107); CREATININE 0.7 MG/DL (0.55-1.30); POTASSIUM 3.1 MMOL/L (3.5-5.1); SODIUM 138 MMOL/L (136-145)
[2017-11-25 12:00] VITALS: BP 125/76
[2017-11-25] MEDS ORDERED: OXYCODONE HCL5 MG ORAL (12:46)
[2017-11-25] MEDS ORDERED: SOMA350 MG PO (12:47)
--- NOTE | 2017-11-25 13:06 | Internal Med Progress Note ---
Subjective Date of Service: Nov 25, 2017 Physician Name LandaverdeJean-Paul erazo Attending Physician Daniel Jones Current Medications Medications (Trade) Dose Ordered Sig/Christa Route PRN Reason Start Time Stop Time Status Last Admin Dose Admin Acetaminophen (Tylenol) 650 mg Q4H PRN ORAL headache or temp>101 11/24/17 16:30 12/19/17 20:29 11/24/17 17:00 Al Hydroxide/Mg Hydroxide (Mylanta) 30 ml Q6H PRN ORAL GERD 11/24/17 14:45 12/19/17 20:44 Aripiprazole (Abilify) 20 mg QHS ORAL 11/24/17 21:00 12/19/17 20:59 11/24/17 20:40 Carisoprodol (Soma) 350 mg Q8H PRN ORAL MUSCLE SPASM 11/24/17 20:45 12/19/17 20:44 11/25/17 01:00 Diazepam (Valium) 5 mg QHS ORAL 11/24/17 21:00 11/29/17 20:59 11/24/17 20:41 Diphenhydramine HCl (Benadryl) 25 mg Q6H PRN ORAL Itching 11/24/17 14:45 12/19/17 20:44 Docusate Sodium (Colace) 100 mg TWICE A DAY ORAL 11/24/17 18:00 12/19/17 20:29 11/25/17 08:20 Fluoxetine HCl (PROzac) 40 mg DAILY ORAL 11/25/17 09:00 12/20/17 08:59 11/25/17 08:20 Magnesium Hydroxide (Mom) 30 ml QIDPRN PRN ORAL Constipation 11/24/17 20:30 12/19/17 20:29 Morphine Sulfate (MS Contin) 30 mg Q12H ORAL 11/24/17 18:00 11/29/17 17:59 11/25/17 05:09 Nystatin (Nystatin) 5 ml QID ORAL 11/24/17 18:00 11/30/17 08:59 11/25/17 12:55 Ondansetron HCl (Zofran) 4 mg Q4H PRN IVP Nausea & Vomiting 11/24/17 17:00 12/19/17 20:59 Oxycodone HCl (Roxicodone) 10 mg Q3H PRN ORAL Moderate Breakthru Pain (5-7) 11/24/17 14:45 11/26/17 20:44 11/25/17 07:29 Pantoprazole (Protonix) 40 mg BEDTIME ORAL 11/24/17 21:00 12/19/17 20:59 11/24/17 20:39 Phenol/Menthol (Chloraseptic) 1 spray Q3H PRN ORAL sore throat 11/24/17 15:00 12/19/17 20:59 Promethazine HCl (Phenergan Supp) 12.5 mg Q12H PRN RECTAL Nausea & Vomiting 11/24/17 20:45 12/19/17 20:44 Simethicone (Mylicon) 80 mg Q8H PRN ORAL gas/bloating 11/24/17 21:00 12/23/17 20:59 Topiramate (Topamax) 100 mg QHS ORAL 11/24/17 21:00 12/19/17 21:59 11/24/17 20:40 Zolpidem Tartrate (Ambien) 5 mg HSPRN PRN ORAL Insomnia 11/24/17 21:00 11/26/17 20:59 Allergies: Coded Allergies: ADHESIVE TAPE (Verified Allergy, Severe, blisters, rash , 11/18/17) CITALOPRAM (Verified Allergy, Severe, sob, asthma attack, 11/18/17) IODINATED CONTRAST- ORAL AND IV DYE (Verified Allergy, Severe, anaphylactic shock, 11/18/17) LATEX (Verified Allergy, Severe, sob, rash, hives, 11/18/17) SULFA (SULFONAMIDE ANTIBIOTICS) (Verified Allergy, Severe, anaphylactic shock , 11/18/17) ROS Limited/Unobtainable: No Constitutional: Reports: no symptoms HEENT: Reports: no symptoms Cardiovascular: Reports: no symptoms Respiratory: Reports: no symptoms Gastrointestinal/Abdominal: Reports: no symptoms Genitourinary: Reports: no symptoms Neurologic/Psychiatric: Reports: no symptoms Subjective 62 YO F admitted for chronic lumbar spine pain. S/P multi-level lumbar spine fusion and laminectomy 11/19/17. Cover for Int Reji-Dr Conley. Await discharge home today Objective Last Vital Signs Date Time Temp Pulse Resp B/P (MAP) Pulse Ox O2 Delivery O2 Flow Rate FiO2 11/25/17 12:00 98.5 103 18 125/76 97 Room Air 11/20/17 04:30 2.0 Laboratory Tests Test 11/24/17 15:30 11/25/17 09:30 Stool Occult Blood Negative (NEGATIVE) White Blood Count 7.0 K/UL (4.8-10.8) Red Blood Count 2.97 M/UL (4.20-5.40) L Hemoglobin 9.3 G/DL (12.0-16.0) L Hematocrit 28.0 % (37.0-47.0) L Mean Corpuscular Volume 94 FL (80-99) Mean Corpuscular Hemoglobin 31.5 PG (27.0-31.0) H Mean Corpuscular Hemoglobin Concent 33.4 G/DL (32.0-36.0) Red Cell Distribution Width 11.4 % (11.6-14.8) L Platelet Count 399 K/UL (150-450) Mean Platelet Volume 5.1 FL (6.5-10.1) L Neutrophils (%) (Auto) 71.9 % (45.0-75.0) Lymphocytes (%) (Auto) 10.8 % (20.0-45.0) L Monocytes (%) (Auto) 13.3 % (1.0-10.0) H Eosinophils (%) (Auto) 3.0 % (0.0-3.0) Basophils (%) (Auto) 0.9 % (0.0-2.0) Sodium Level 138 MMOL/L (136-145) Potassium Level 3.1 MMOL/L (3.5-5.1) L Chloride Level 100 MMOL/L (98-107) Carbon Dioxide Level 28 MMOL/L (21-32) Anion Gap 10 mmol/L (5-15) Blood Urea Nitrogen 7 mg/dL (7-18) Creatinine 0.7 MG/DL (0.55-1.30) Estimat Glomerular Filtration Rate > 60 mL/min (>60) Glucose Level 109 MG/DL (74-106) H Calcium Level 8.7 MG/DL (8.5-10.1) Intake and Output 11/24/17 11/25/17 19:00 07:00 Intake Total 240 ml 380 ml Balance 240 ml 380 ml Intake Oral 240 ml 380 ml # Voids 3 3 Objective General Appearance: WD/WN, alert, moderate distress, obese EENT: PERRL/EOMI, normal ENT inspection Neck: non-tender, normal alignment, supple, normal inspection Cardiovascular: normal peripheral pulses, normal rate, regular rhythm, no gallop/murmur, no JVD Respiratory/Chest: chest wall non-tender, lungs clear, normal breath sounds, no respiratory distress, no accessory muscle use Abdomen: normal bowel sounds, non tender, soft, no organomegaly, no mass Extremities: normal range of motion, non-tender Neurologic: outpatient surgery rn II-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 (8) Anemia Assessment & Plan: Worsening. S/P transfusion 3 units PRBC total (9) Constipation Assessment & Plan: Fleets enema prn Status: stable Assessment/Plan Discharge home today with home health. JEAN-PAUL LANDAVERDE Nov 25, 2017 13:06
--- NOTE | 2017-11-27 11:08 | Discharge Summary ---
Discharge Summary Hospital Course Date of Admission Nov 19, 2017 at 06:41 Date of Discharge Nov 25, 2017 at 14:00 Admitting Diagnosis lumbar pain, arthropathy L1-L2 with moderately severe spinal stenosis L1-L2. Reason for Hospitalization: elective surgery HPI Nolvia Hoyt is a 62 year old female who was admitted on Nov 19, 2017 at 06:41 for lumbar pain, arthropathy L1-L2 with moderately severe spinal stenosis L1- L2. Patient was admitted for elective surgery Consultations dr Song ( pain specialist) dr Conley - IM Procedures s/p1 by dr. Jones 1. Extreme lateral interbody fusion, L/anterior interbody fusion L1-L2. 2. Interbody structural PEEK graft, spinal elements. 3. Use of fluoroscopy. 4. Use of local autograft bone (harvested rib as well as allograft bone). s/p 11/19/[address] Kobe Cuevas ( for approach) 1. Muscle sparing extraperitoneal-extrapleural extreme lateral interbody fusion, L1-L2 (one interspace). 2. Transpsoas exposure of the lateral surface of the spine at L1-L2. 3. Resection of left 11th rib. Hospital Course s/p surgery initially with drains, output closely monitored empiric abx IVF pain management for first 48 hrs with [employer] pain specialist followed after [employer] dc, IV and po analgesics pain controlled IS at the bedside, encourage to use while in the bed PT eval and Rx fall precautions dressing clean, intact, wound care c/o mild numbness B hands ( C 6 distribution), resolved the next day s/p Lasix x 1 HH trended down, s/p total of 3 u of PRBC HH remain stable output from drain cath decreased, drains were dc on 11/22 stool OB negative Mylicon prn ( for delayed flatus) Bowel regimen instituted slowly started on diet after bowel function resumed, advanced as tolerated a/emetic prn, tolerated diet voided freely had BM pain controlled n/v intact ambulated stable for dc home outpt f/up with surgeon as advised FINAL DIAGNOSIS Status post prior fusion, L2 through S1 with adjacent level arthropathy L1-L2 with moderately severe spinal stenosis L1-L2. s/p extreme lumbar interbody fusion L1-2, lumbar spine fusion T10 to L2, revision hardware L2-3, laminectomy L1 and L2 anemia, requiring multiple blood transfusion ( total of 3 units) HTN Opiate dependency Diastolic dysfunction with heart failure Obesity Depression Discharge Medications Continued Medications: Aripiprazole* (Abilify*) 20 Mg Tablet 20 MG ORAL HS, TAB Carisoprodol* (Soma*) 350 Mg Tablet 350 MG PO BID PRN for Muscle Spasm, TAB Fluoxetine Hcl* (Prozac*) 40 Mg Capsule 40 MG ORAL DAILY, CAP Metoprolol/Hydrochlorothiazide (Lopressor Hct 50-25 Tablet) 1 Each Tablet 1 TAB ORAL DAILY, TAB Morphine Sulfate (Katina) 20 Mg Cap.er.pel 30 MG PO BID, CAP Oxycodone Hcl Ir* (Roxicodone Ir*) 5 Mg Tablet 15 MG ORAL QID PRN for For Pain, #90 TAB Simvastatin (Zocor) 20 Mg Tablet 20 MG ORAL BEDTIME, TAB Topiramate* (Topamax*) 100 Mg Tablet 100 MG ORAL HS, #60 TAB 0 Refills Discharge Condition Upon Discharge: stable Discharge Disposition Patient was discharged to Home (01) Discharge Diagnoses: Discharge Instructions Discharge Instructions Special Instructions I have been assigned to complete a D/C Summary on this account. I was not involved in the patient management Dov CarrAdilene farfan NP Nov 27, 2017 11:08
== END 2017-11-25 14:00 | disposition home or self-care (01) | DRG 454 ==
LOC: SDSOVERFLO 06:41 → 3E 19:30 → 2E 11-23 19:12 → 3E 11-24 13:22
PROC: 0RGA071 Fusion of Thoracolumbar Vertebral Joint with Autologous Tissue Substitute, Posterior Approach, Posterior Column, Open Approach (ICD-10-PCS; principal; 2017-11-19 09:00)
PROC: 0PB10ZZ Excision of 1 to 2 Ribs, Open Approach (ICD-10-PCS; principal; 2017-11-19 09:00)
PROC: 0QW004Z Revision of Internal Fixation Device in Lumbar Vertebra, Open Approach (ICD-10-PCS; principal; 2017-11-19 09:00)
PROC: 01NB0ZZ Release Lumbar Nerve, Open Approach (ICD-10-PCS; principal; 2017-11-19 09:00)
PROC: 0SG00A0 Fusion of Lumbar Vertebral Joint with Interbody Fusion Device, Anterior Approach, Anterior Column, Open Approach (ICD-10-PCS; principal; 2017-11-19 09:00)
PROC: 00NY0ZZ Release Lumbar Spinal Cord, Open Approach (ICD-10-PCS; principal; 2017-11-19 09:00)
DX: M48.061 Spinal stenosis, lumbar region without neurogenic claudication (principal); I50.30 Unspecified diastolic (congestive) heart failure; F11.20 Opioid dependence, uncomplicated; E66.01 Morbid (severe) obesity due to excess calories; M48.54XA Collapsed vertebra, not elsewhere classified, thoracic region, initial encounter for fracture; G89.18 Other acute postprocedural pain; M06.9 Rheumatoid arthritis, unspecified; F32.9 Major depressive disorder, single episode, unspecified; Z68.32 Body mass index [BMI] 32.0-32.9, adult; K59.00 Constipation, unspecified; D64.9 Anemia, unspecified
CPT/HCPCS: 36415; 71020; 71045; 72020; 76001; 80048; 80053; 81003; 82270; 83735; 84100; 85007; 85025; 85610; 85730; 86850; 86900; 86901; 86920; 87081; 87086; 93005; 94003; 94150; J2250; J2405; J8499

== ENCOUNTER 2019-02-24 07:07 | Inpatient (IN) | payer OTHER ==
[2019-02-24] VITALS (17 sets, daily range): BP systolic 109–152; BP diastolic 42–79
[~2019-02-24] VITALS: Ht 167.6 cm; Wt 94.8 kg
[~2019-02-24 07:07] MED LIST changes: +OXYCODONE HCL5 MG ORAL; +Propofol 1,000mg/ 100ml btl IV ONE; +SOMA350 MG PO; +ceFAZolin sod 1 GM in NS 55 ML IVPB ONE
[2019-02-24] MEDS ORDERED: Thrombin 5000 units spray kit TOPIC ONE (07:29)
[2019-02-24] MEDS ORDERED: Gelfoam Size TOPIC ONE (07:29)
[2019-02-24] MEDS ORDERED: Thrombin 5000 units TOPIC ONE (07:29)
[2019-02-24] MEDS ORDERED: Bacitracin 50000 Units Vial ONE (07:30)
[2019-02-24] MEDS ORDERED: Gelfoam Absorbable 1gm powder pkt TOPIC ONE (07:30)
[2019-02-24] MEDS ORDERED: Bupivacaine w/Epi 0.5% 30ml Vial INJ ONE (07:30)
[2019-02-24] MEDS ORDERED: ULTRACET1 EA ORAL (07:50)
[2019-02-24] MEDS ORDERED: [UNRECOGNIZED DRUG - OTHER] IV (07:50)
[2019-02-24] MEDS ORDERED: LOPRESSOR PO (07:50)
[2019-02-24] MEDS ORDERED: Zemuron 50mg/5ml Inj IV ONE (08:00)
[2019-02-24] MEDS ORDERED: Midazolam 2mg/2ml Inj ONE (08:08)
[2019-02-24] MEDS ORDERED: LR 1000ml ONE (08:30)
[2019-02-24] MEDS ORDERED: Propofol 200mg/20ml IV ONE (08:30)
[2019-02-24] MEDS ORDERED: Sterile Water Irrig 1000ml IRRIG ONE (08:30)
--- NOTE | 2019-02-24 08:33 | Pre-Procedure Note/Attestation ---
Pre-Procedure Note/Attestation Complete Prior to Procedure Procedure Narrative: ACDF c34 Indications for Procedure Pre-Operative Diagnosis: C34 discpathy and stenosis Attestation I attest that I discussed the nature of the procedure; its benefits; risks and complications; and alternatives (and the risks and benefits of such alternatives ), prior to the procedure, with the patient (or the patient's legal customer relations representative). I attest that, if there was a reasonable possibility of needing a blood transfusion, the patient (or the patient's legal customer relations representative) was given the [facility] standardized written summary, pursuant to the [place] Blood Safety Act ([place] Health and Safety Code # 1645, as amended). I attest that I re-evaluated the patient just prior to the surgery and that there has been no change in the patient's H&P, except as documented below: Daniel Jones MD Feb 24, 2019 08:33
--- NOTE | 2019-02-24 08:34 | Brief Operative Note ---
Immediate Post Operative Note Operative Note Pre-op Diagnosis: C34 discpathy and stenosis Procedure: ACDF c34 with partial corpectomies Post-op Diagnosis: same as pre-op Findings: consistent w/pre-op dx studies Surgeon: jacklyn Office Machine Punch Operator: johnathan clement Anesthesiologist: hany Anesthesia: general Specimen: none Complications: none Condition: stable Fluids: 500 Estimated Blood Loss: minimal Drains: none Implant(s) used?: Yes - 4web and RTI plate Daniel Jones MD Feb 24, 2019 08:34
[2019-02-24] MEDS ORDERED: NS Irrig 1000ml IRRIG ONE (08:35)
[2019-02-24] MEDS ORDERED: Milk of Magnesia 30ml Ud ORAL PRN (08:45)
[2019-02-24] MEDS ORDERED: Glycopyrrolate 0.2mg/ml 1ml Vial ONE (09:29)
[2019-02-24] MEDS ORDERED: Metoclopramide 10mg/2ml Inj ONE (09:29)
[2019-02-24] MEDS ORDERED: ePHEDrine 50mg/ml Inj ONE (09:29)
[2019-02-24] MEDS ORDERED: Dexamethasone 4mg/ml vial ONE (09:29)
[2019-02-24] MEDS ORDERED: Lidocaine 1% MPF 10mg/ml 5ml ONE (09:29)
[2019-02-24] MEDS ORDERED: Hydromorphone 0.5mg/0.5ml inj IVP PRN ×3 (09:45→18:15)
[2019-02-24] MEDS ORDERED: fentaNYL 100 mcg/2 mL IV PRN (09:45)
--- NOTE | 2019-02-24 09:56 | Anethesia Preoperative Eval ---
Anesthesia Pre-op PMH/ROS General Date of Evaluation: Feb 24, 2019 Time of Evaluation: 08:30 Anesthesiologist: lorie ASA Score: ASA 2 Mallampati Score Class I : Soft palate, uvula, fauces, pillars visible Class II: Soft palate, uvula, fauces visible Class III: Soft palate, base of uvula visible Class IV: Only hard plate visible Mallampati Classification: Class II Surgeon: Robert Diagnosis: s/p cervical fusion C4-6 with adjacent level arthrosis Surgical Procedure: ACDF 3-4 Anesthesia History: none Family History: no anesthesia problems Allergies: Coded Allergies: ADHESIVE TAPE (Verified Allergy, Severe, blisters, rash , 11/18/17) CITALOPRAM (Verified Allergy, Severe, sob, asthma attack, 11/18/17) IODINATED CONTRAST- ORAL AND IV DYE (Verified Allergy, Severe, anaphylactic shock, 11/18/17) LATEX (Verified Allergy, Severe, sob, rash, hives, 11/18/17) SULFA (SULFONAMIDE ANTIBIOTICS) (Verified Allergy, Severe, anaphylactic shock , 11/18/17) Medications: see eMAR Patient NPO?: Yes NPO Date: Feb 23, 2019 NPO Time: 2300 Past Medical History Cardiovascular: Denies: HTN, CAD, ID, valve dz, arrhythmia, other Pulmonary: Reports: asthma; Denies: COPD, TATY, other Gastrointestinal/Genitourinary: Reports: GERD; Denies: CRI, ESRD, other Neurologic/Psychiatric: Denies: dementia, CVA, depression/anxiety, TIA, other Endocrine: Reports: hypothyroidism HEENT: Denies: cataract (L), cataract (R), glaucoma, [place] (L), [place] (R), other Hematology/Immune: Denies: anemia, DVT, bleeding disorder, other Musculoskeletal/Integumentary: Reports: OA, DJD; Denies: RA, DDD, edema, other Other: obesity PSxH Narrative: gastric sleeve; cervical fusion; lumbar fusion Anesthesia Pre-op Phys. Exam Physician Exam Last Vital Signs Date Time Temp Pulse Resp B/P (MAP) Pulse Ox O2 Delivery O2 Flow Rate FiO2 02/24/19 08:12 97.7 58 20 111/79 (90) 98 02/24/19 08:02 Room Air Constitutional: NAD Neurologic: CN 2-12 intact Cardiovascular: RRR Respiratory: CTA Gastrointestinal: S/NT/ND Airway Exam Mallampati Classification 3 Mallampati Score: Class III MO: limited Neck: thick TMD: 1fb ROM: limited Dentures: no upper, no lower Anesthesia Pre-op A/P Labs 13/40 h/h [id number] chemisty -wnl inr 1.0 ptt 26 Studies Pre-op Studies: EKG - SRE Risk Assessment & Plan Assessment: denies CP/SOB/Changes in health Plan: General/TIVA/BIS monitoring; MEP; SSEP Status Change Before Surgery: No Pre-Antibiotics Drug: ancef Given Within 1 Hr of Incision: Yes Time Given: 08:40 Alfreda Torres CRNA Feb 24, 2019 09:56
--- NOTE | 2019-02-24 11:21 | Immediate Post-Op Evaluation ---
Immediate Post-Op Evalulation Immediate Post-Op Evalulation Procedure: ACDF C3-4 Date of Evaluation: Feb 24, 2019 Time of Evaluation: 10:35 IV Fluids: 600 Blood Products: 0 Estimated Blood Loss: 50 Urinary Output: 100 Blood Pressure Systolic: 125 Blood Pressure Diastolic: 71 Pulse Rate: 75 Respiratory Rate: 14 O2 Sat by Pulse Oximetry: 99 Temperature (Fahrenheit): 97.5 Pain Score (1-10): 1 Nausea: No Vomiting: No Complications none Patient Status: awake, reacts, patent Drug: ancef Given Within 1 Hr of Incision: Yes Time Given: 07:40 Alfreda Torres CRNA Feb 24, 2019 11:21
[2019-02-24] MEDS: D5 1/2NS 1,000 ML IV SCH (13:09)
--- NOTE | 2019-02-24 14:19 | Cardiology Progress Note ---
Assessment/Plan Assessment/Plan [id number] Objective Last 24 Hour Vital Signs Date Time Temp Pulse Resp B/P (MAP) Pulse Ox O2 Delivery O2 Flow Rate FiO2 02/24/19 12:15 Room Air 02/24/19 12:15 97.7 74 20 119/55 (76) 97 02/24/19 12:10 97.9 72 15 118/60 100 Nasal Cannula 3 02/24/19 12:05 69 14 114/60 100 Nasal Cannula 3 02/24/19 11:54 97.7 02/24/19 11:50 67 14 120/56 100 Nasal Cannula 3 02/24/19 11:35 70 24 111/53 100 Nasal Cannula 3 02/24/19 11:24 74 18 152/53 100 Nasal Cannula 3 02/24/19 11:21 75 14 99 02/24/19 11:12 97.8 02/24/19 11:05 75 15 121/56 100 Nasal Cannula 3 02/24/19 10:52 74 16 118/50 100 Simple Mask 8 02/24/19 10:42 72 24 118/51 100 Simple Mask 8 02/24/19 10:36 80 16 110/43 100 Simple Mask 8 02/24/19 10:31 91 17 122/42 100 Simple Mask 8 02/24/19 10:26 97.1 90 14 129/55 100 Simple Mask 8 02/24/19 08:12 97.7 58 20 111/79 (90) 98 02/24/19 08:02 Room Air Eliazar Flores MD Feb 24, 2019 14:19
[2019-02-24] MEDS: ceFAZolin sod 1 GM in D5W 55 ML IV SCH (16:44)
--- NOTE | 2019-02-24 17:00 | Operative Note - Dictated ---
DATE OF OPERATION: 02/24/2019 SURGEON: Daniel Jones M.D. RHIC SYSTEMS SAFETY ENGINEER: Darrel Hatfield PA-C ANESTHESIOLOGIST: Dr. Ramirez. ANESTHESIA TYPE: General endotracheal anesthesia. PREOPERATIVE DIAGNOSIS: Severe spinal stenosis C3-C4 with advanced diskogenic collapse. POSTOPERATIVE DIAGNOSIS: Severe spinal stenosis C3-C4 with advanced diskogenic collapse. PROCEDURE: 1. Wide and radical diskectomy, C3-C4. 2. Partial corpectomies at C3 and C4. 3. Interbody fusion using structural cage by 4 WEB. 4. Use of local autograft and Signafuse bone graft semiconductor packages platemaker. 5. Anterior instrumentation using RTI plates. 6. Use of fluoroscopy. 7. Neurodiagnostic monitoring. 8. Use of operating microscope. ESTIMATED BLOOD LOSS: Minimal. FLUIDS: 500. COMPLICATIONS: None. INDICATIONS: The patient is a very pleasant woman with a long and complicated history as relates to her spinal condition. She had a prior posterior fusion decompression C4, C5, C6 developed adjacent level arthrosis at C3-C4 and to a lesser extent C6-C7. The worst level is the C3-C4 with fairly advanced compression of the cord. Partial anterior corpectomy and decompression with interbody fusion was recommended. She elected to proceed. RISKS NOTE: The patient was explained in detail risks, benefits of surgery to include, but not be limited to those of bleeding, infection, damage to nerves, vessels, tendons, anesthetic risk, allergic reaction, aspiration, possibly , possible pseudoarthrosis, need for additional surgery were discussed. She elected to proceed. OPERATIVE PROCEDURE IN DETAIL: The patient was taken to the operative suite. After general endotracheal anesthesia was obtained, Gee catheter was placed. She was positioned supine on to the radiolucent table. A bolster under her neck, chin was strapped. Fluoroscope was brought in place and visualization of the C3-C4 level was achieved. At this point, the neck was prepped and draped in usual sterile fashion. Skin was infiltrated with Marcaine with epinephrine. The transverse incision was made on the right at C3-C4. Blunt dissection was carried out medial to the sternocleidomastoid as well as the carotid to the area of the prevertebral fascia. The fascia was identified and self-retaining retractors were put into place. A needle was placed at the C3-C4 level and this was radiographically confirmed. At this point, the [place] posts were then placed into the C3-C4 and gentle disk distraction was obtained. The disk was very very collapsed and large posterior osteophytes were encountered. High-speed drill was then used to perform partial corpectomy of the inferior endplate of C3 and superior portion of C4. Posterior osteophytes were also resected. Copious irrigation was performed. Local bone graft was used for reimplantation later. At this point, dissection was carried out under microscopic visualization to the posterior anulus, which was removed in a piecemeal fashion as well as the posterior longitudinal ligament. Spinal cord was identified and dissection was carried out from foramen on the right to foramen on the left. Once satisfied with the decompression, endplate preparation was performed. A 5 mm interbody cage was chosen. It was centrally packed with Signafuse as well as with local autograft bone. It was gently packed into position and verified fluoroscopically. At this juncture, the [place] posts were removed. All bleeding was minimized and stopped with bipolar. A 10 mm plate was chosen and applied. It was noted that the bone is relatively soft at C3 and C4. A 12 and 14 mm screws were applied at both C3 and C4. Final x-rays demonstrated hardware in good position. Bone graft in good position. At this point, meticulous hemostasis was achieved using bipolar. The platysma was repaired using 3-0 Vicryl and 4-0 Vicryl for the skin. Dermabond and sterile dressing was applied. At the time of this dictation, Motor testing not yet performed as the patient was still not awake enough to follow commands. Sponge and needle counts were correct. Neurodiagnostic monitoring remained stable throughout the procedure. Daniel Jones M.D. DR: Colleen JOB#: [id number] CC: DUNCAN
[2019-02-24] MEDS: Docusate 100mg cap ORAL SCH (17:32)
[2019-02-24] MEDS ORDERED: Chloraseptic Spray 20mL Bottle ORAL ONE (18:11)
[2019-02-24] MEDS ORDERED: Chloraseptic Spray 20mL Bottle ORAL PRN (18:15)
[2019-02-24] MEDS ORDERED: Morphine IR 15mg tab ORAL PRN (18:15)
--- NOTE | 2019-02-24 19:00 | NUR ---
NURSE NOTES: CONDITION STABLE. IN NO DISTRESS.
--- NOTE | 2019-02-24 19:15 | Consultation ---
DATE OF CONSULTATION: 02/24/2019 INTERNAL MEDICINE CONSULTATION CONSULTING PHYSICIAN: Eliazar Flores M.D. REFERRING PHYSICIAN: Daniel Jones M.D. REASON FOR REFERRAL: Postoperative medical care. HISTORY OF PRESENT ILLNESS: This is a middle-aged female, who is 63 years old with history of multiple medical problems and was admitted to the hospital by Dr. Jones and underwent a cervical fusion of C4, C5, and C6 and is now being observed postoperatively prior to being discharged home tomorrow. It seems as if her pain seems to be controlled. She denies any chest pain, pressure, or tightness. No shortness of breath. No orthopnea. No palpitations. No dizziness or lightheadedness on standing. She does have some sore throat at this time. PAST MEDICAL HISTORY: Positive for history of high blood pressure and high cholesterol. No history of heart attack. No cancer. No stroke. No hepatitis or tuberculosis. She does have history of asthma. No history of ulcers. No kidney problems or liver problems. She does have some kind of growth on her thyroid. She does have rheumatoid arthritis. No blood clots or deep venous thrombosis of any kind. She does have a history of high cholesterol as well as depression and is followed by [facility]. MEDICATIONS AT HOME: Include Abilify 20 mg at bedtime, Soma 350 mg twice a day as needed, Prozac 40 mg daily, morphine sulfate as needed, Zocor 20 mg at bedtime, Topamax 100 mg at bedtime, Ultracet 4 times a day as needed, Lopressor 25 mg daily, and Rituxan every 2 weeks. ALLERGIES: Sulfa is listed by the patient as allergy. Celexa has been also listed in the chart as allergies as well. REVIEW OF SYSTEMS: GASTROINTESTINAL: Negative. GENITOURINARY: Negative. PULMONARY: Negative. CONSTITUTIONAL: Negative. NEUROLOGICAL: Negative. PHYSICAL EXAMINATION: GENERAL: Shows to be overweight female, in no respiratory distress. NECK: Supple. There is a surgical scar on the right side. It is completely dry. LUNGS: Clear to auscultation and percussion. CARDIAC: S1 is normal. S2 is normal. Regular rate and rhythm. No heaves, thrills, or gallops noted. ABDOMEN: Soft and obese. Positive bowel sounds. EXTREMITY: No edema. Pneumatic compression stockings in place. LABORATORY DATA: Her preop laboratories were reviewed in the chart. Blood sugar of 98, creatinine 0.97, and potassium 4.6. Hemoglobin of 13, white count of 3.5, and a platelet count of 234,000. INR and PTT were all normal. EKG preop appears to show normal sinus rhythm, but the quality is poor. No ST or T-wave abnormalities are noted. ASSESSMENT: 1. Cervical spine disorder status post surgery. 2. Hyperlipidemia. 3. History of depression. 4. History of rheumatoid arthritis. 5. History of asthma. 6. History of arrhythmias treated with a low dose of Lopressor. PLAN: This patient was seen in Internal Medicine and Cardiology consultation. The patient cardiovascularly appears to be doing well. Her vital signs seems stable with the most recent blood pressure of 119/55 with heart rate 74 and temperature of 97.7. Incentive spirometer provided. The patient does have a compression stockings in place for DVT prophylaxis. Hopefully, with the date and the plan will be for possible discharge home tomorrow. Her usual medications will be resumed. She indicates she takes all of her medications at night. Eliazar Flores M.D. DR: SPARKLE JOB#: [id number] CC:
--- NOTE | 2019-02-24 19:30 | NUR ---
NURSE NOTES: Patient received in bed, awake and alert. C/o pain 06/20, will medicate as prescribed. Neck collar on. IV intact and IVF infusing. Offered ice pack, patient refused. Gee catheter draining urine via gravity, secured to thigh. Call light and personal belongings within reach, will continue to monitor.
--- NOTE | 2019-02-24 19:31 | NUR ---
HAND-OFF: Report given to markel FONG RN.
[2019-02-24] MEDS: HYDROmorphone 1mg/ml Carpuject SUBQ PRN ×2 (19:35→23:59)
[2019-02-24] MEDS: MS Contin 15mg tab ORAL SCH (20:28)
[2019-02-24] MEDS ORDERED: ARIPiprazole 10mg tab ORAL SCH ×3 (21:00→22:00)
[2019-02-24] MEDS ORDERED: Metoprolol Succinate XL 25mg tab ORAL SCH (21:00)
[2019-02-24] MEDS ORDERED: Topiramate 100mg tab ORAL SCH (21:00)
[2019-02-24] MEDS ORDERED: Atorvastatin 20mg tab ORAL SCH (21:00)
[2019-02-25] VITALS: BP 124/68
--- NOTE | 2019-02-25 00:30 | Progress Note ---
DATE: 02/24/2019 ACUTE PAIN MANAGEMENT PHYSICIAN PROGRESS NOTE SUBJECTIVE: The patient is well known to me from her hospitalization back in November 2017 when she had extensive lumbar spine fusion surgery with instrumentation with Dr. Jones. A 16 months later today, the patient underwent cervical spine fusion surgery with instrumentation by Dr. Jones. This patient has a long history of opioid dependence and still uses nightly extended release morphine for pain control. The surgeon consulted me to help with her opioid dosing postoperatively when she complained of 9/10 postoperative pain, with her history of opioid dependence. The patient was seen at the bedside by myself, where I performed a detailed history and physical examination. I discussed the case with the recovery room nurse, along with the charge nurse RNBharati and the surgeon, Dr. Garces. I spent over 75 minutes in consultation with an additional 30 minutes in medical record review. Multiple records were reviewed from the patient's November 2017 hospitalization records from [facility]. Utilization review records were reviewed from the insurance carrier, [employer] regarding today's authorized neck fusion surgery. I also reviewed multiple preoperative records from Dr. Ledezma, who performed the preoperative history and physical on 02/16/2019, and I reviewed the preoperative diagnostic tests including pulmonary function testing, preoperative chest x-ray, a 12-lead EKG, and laboratory studies. I also reviewed multiple records from today's date of surgery at [facility], 02/24/2019 regarding the patient's cervical spine fusion surgery with instrumentation procedure. I reviewed postoperative spine surgery orders and postoperative surgery report by Dr. Jones. I reviewed records from the recovery room, I reviewed records from the anesthesiologist including preoperative anesthesia evaluation and the anesthesia record and PACU orders. I reviewed multiple records from the surgery suite and all records from the nursing and pharmacy departments. After examination of the patient at the bedside and review of the extensive medical records, I decided to provide the following analgesic plan. The patient states that over the past year, she has tried to decrease her opioid usage. When I last saw her 16 months ago in November 2017, she left the hospital after her lumbar spine fusion surgery, using MS Contin 30 mg around the clock every 8 hours. She also was using breakthrough doses of oxycodone and Soma. The patient states that she has in the interim has discontinued her use of Soma and is using primarily MS Contin 50 mg extended release at bedtime. She has been restarted on her Abilify, Topamax, and Prozac for mood stabilization. I have set up a tiered regimen of analgesics starting with MSIR instant release morphine 50 mg orally every three hours p.r.n. for mild pain. I have ordered 2 different doses of Dilaudid starting with 0.5 mg intravenously every three hours p.r.n. for moderate pain and a double dose at 1 mg subcutaneously of Dilaudid every three hours p.r.n. for severe breakthrough pain. I also placed the patient on around the clock MS Contin 30 mg for baseline analgesia. The patient agreed with this plan. I have asked the nursing team to place a Chloraseptic spray at the bedside as the patient is complaining of severe sore throat complaints after her neck fusion surgery. I have also spoken with the hospital pharmacist, Cheri, to help expedite these orders. Sequential compression pneumatic devices have been ordered for DVT prophylaxis. I will order incentive spirometer to encourage good pulmonary toilet. Rick Song M.D. DR: JAYME JOB#: [id number] CC:
[2019-02-25] MEDS: ceFAZolin sod 1 GM in D5W 55 ML IV SCH ×2 (01:12→08:35)
[2019-02-25] MEDS: D5 1/2NS 1,000 ML IV SCH (01:28)
[2019-02-25 04:00] VITALS: BP 120/65
[2019-02-25] MEDS: HYDROmorphone 1mg/ml Carpuject SUBQ PRN (06:21)
--- NOTE | 2019-02-25 07:20 | NUR ---
HAND-OFF: Report given to Sri Blount. Message left to Dr. Song regarding patient requesting for home medication Soma to be continued inpatient. Addendum: 02/25/19 at 8164 by SAW FONG RN RN call received from Dr. Song and received order for soma.
--- NOTE | 2019-02-25 07:29 | NUR ---
NURSE NOTES: AWAKE/ALERT. ANTERIOR NECK DRESSING DRY AND INTACT. WITH HARD COLLAR ON. NO C/O PAIN. WITH MINIMAL TINGLING RT FINGERS. IN NO ACUTE DISTRESS
[2019-02-25] MEDS: MS Contin 15mg tab ORAL SCH (07:58)
[2019-02-25 08:00] VITALS: BP 107/57
--- NOTE | 2019-02-25 08:29 | 48 Hour Post Anesthesia Eval ---
Post Anesthesia Evaluation Procedure: ACDF C3-4 Date of Evaluation: Feb 25, 2019 Time of Evaluation: 06:34 Blood Pressure Systolic: 120 0: 65 Pulse Rate: 82 Respiratory Rate: 18 Temperature (Fahrenheit): 98.1 O2 Sat by Pulse Oximetry: 97 Airway: patent Nausea: No Vomiting: No Pain Intensity: 2 Hydration Status: adequate Cardiopulmonary Status: Stable Mental Status/LOC: patient returned to baseline Follow-up Care/Observations: 0 Post-Anesthesia Complications: 0 Follow-up care needed: N/A Ozzy Jones MD Feb 25, 2019 08:29
[2019-02-25] MEDS: Docusate 100mg cap ORAL SCH (08:35)
--- NOTE | 2019-02-25 09:22 | Orthopedic Spine Progress Note ---
Ortho Spine - Progress Note Subjective Symptoms: c/o right arm pain, improved - as compared to pre-op Objective Vital Signs: Last 24 Hour Vital Signs Date Time Temp Pulse Resp B/P (MAP) Pulse Ox O2 Delivery O2 Flow Rate FiO2 02/25/19 08:29 82 18 97 02/25/19 08:28 98.1 02/25/19 08:14 Room Air 02/25/19 08:00 97.9 94 17 107/57 (74) 97 02/25/19 06:51 98.1 02/25/19 04:00 98.1 82 18 120/65 (83) 97 02/25/19 00:00 97.9 91 18 124/68 (86) 96 02/24/19 21:00 Room Air 02/24/19 20:28 95 116/69 02/24/19 20:00 98.2 95 18 116/69 (85) 96 02/24/19 16:55 98.0 02/24/19 16:00 98.0 101 21 120/67 (84) 98 02/24/19 14:00 97.1 70 19 109/77 (88) 98 02/24/19 13:00 98.0 64 21 115/77 (90) 97 02/24/19 12:15 Room Air 02/24/19 12:15 97.7 74 20 119/55 (76) 97 02/24/19 12:10 97.9 72 15 118/60 100 Nasal Cannula 3 02/24/19 12:05 69 14 114/60 100 Nasal Cannula 3 02/24/19 11:54 97.7 02/24/19 11:50 67 14 120/56 100 Nasal Cannula 3 02/24/19 11:35 70 24 111/53 100 Nasal Cannula 3 02/24/19 11:24 74 18 152/53 100 Nasal Cannula 3 02/24/19 11:21 75 14 99 02/24/19 11:12 97.8 02/24/19 11:05 75 15 121/56 100 Nasal Cannula 3 02/24/19 10:52 74 16 118/50 100 Simple Mask 8 02/24/19 10:42 72 24 118/51 100 Simple Mask 8 02/24/19 10:36 80 16 110/43 100 Simple Mask 8 02/24/19 10:31 91 17 122/42 100 Simple Mask 8 02/24/19 10:26 97.1 90 14 129/55 100 Simple Mask 8 I&O: Intake and Output 02/24/19 02/25/19 19:00 07:00 Intake Total 1467.5 ml 880 ml Output Total 1650 ml 1000 ml Balance -182.5 ml -120 ml Intake Oral 250 ml IV Total 1217.5 ml 880 ml Output Urine Total 1600 ml 1000 ml Estimated Blood Loss 50 ml Wound: clean, dry, intact Drains: none Neuro Status: normal Assessment Procedure Performed: ACDF c34 with partial corpectomies Plan Plan: PT, pain management, discharge plan Daniel Jones MD Feb 25, 2019 09:22
[2019-02-25 12:00] VITALS: BP 117/65
--- NOTE | 2019-02-25 12:46 | Diagnostic Imaging Report ---
Indication: Neck pain Technique: 3 fluoroscopic intraoperative images submitted for archival the PACS Operating surgeon: Daniel Jones MD Total fluoroscopy time: 8.4 seconds Total fluoroscopy dose: 0.96 mGy. Findings: Intraoperative fluoroscopic images submitted for archival the PACS. Initial image demonstrates an indwelling endotracheal tube. A surgical device projects at the level of C3-C4 anteriorly. Subsequent images demonstrate anterior fusion at C3-C4 by means of the anterior plate affixed by screws. Impression: Intraoperative fluoroscopic imaging from spinal surgery. Please see operative report.
[2019-02-25] MEDS ORDERED: Tubing IV Secondary IV ONE (13:44)
[2019-02-25] MEDS ORDERED: D5 1/2NS 1000ml IV ONE (13:44)
--- NOTE | 2019-02-25 13:46 | NUR ---
NURSE NOTES: DISCHARGED HOME PER WHEELCHAIR ACCPD BY IN STABLE CONDITION. DC INSTRUCTIONS. GIVEN.
--- NOTE | 2019-02-25 14:29 | NUR ---
CASE MANAGEMENT:REVIEW 63 YR OLD FEMALE HERE FOR ELECTIVE SURGERY SI: SEVERE SPINAL STENOSIS 97.7 58 20 111/79 98% ON RA IS: TO SURGERY FOR WIDE AND RADICAL DISKECTOMY : TO MED/SURG [facility] OP 02/25/19 DISCHARGED
--- NOTE | 2019-02-25 16:12 | NUR ---
P.T Note:late entry 0845 P.T evaluation completed and treatment initiated per spinal protocol. Skilled P.T service is warranted to ensure safety and compliance with spinal precautions on ADL/functional mobilities. Thank you for this referral.
--- NOTE | 2019-02-25 17:00 | Progress Note ---
DATE: 02/25/2019 ACUTE PAIN MANAGEMENT PHYSICIAN PROGRESS NOTE MEDICATIONS: Medication administration record reviewed. Medications include IV fluids, Colace, Lipitor, Pepcid, MS Contin, Prozac, Abilify, Topamax, and Toprol. P.r.n. medications include Tylenol, milk of magnesia, Dilaudid, Zofran, Mylanta, Benadryl, Chloraseptic spray, instant release morphine, and Soma. LABORATORY STUDIES: No interval laboratory studies. OBJECTIVE: VITAL SIGNS: Afebrile, pulse 82, respirations 18, blood pressure 107/57, and oxygen saturation 97% on room air. I saw the patient at the bedside with her and aunt. I discussed the case with the surgeon, Dr. Jones and physical therapist, Marv. The patient continues to wear a cervical spine collar. She is breathing, phonating, and swallowing within normal limits. The Chloraseptic sprays are very helpful and I have asked the nurse to leave Chloraseptic spray at the bedside. The patient has been tolerating her q.12 hours dosing of MS Contin without any oversedation. The patient has an ample supply at home already for morphine pills as well as Soma. The Soma has been helpful for her spasm symptoms. The patient is able to ambulate independently. I will Hep-Lock IV fluids since she is tolerating adequate oral intake. She has been ambulating well and I see no contraindication for a discharge trial home at this time. Rick Song M.D. DR: HARJIT JOB#: [id number] CC:
--- NOTE | 2019-02-26 10:07 | Discharge Summary ---
Discharge Summary Discharge Summary _ DATE OF ADMISSION: 02/24/2019 DATE OF DISCHARGE: 02/25/2019 DISCHARGED BY: Dr. Daniel Jones NATURAL RESOURCE OFFICER: Dr. Eliazar Song BRIEF HOSPITAL COURSE: Patient is a 63-year-old female, with long and complicated history related to her spinal condition. 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 Worst level was at C3-C4 with fairly advanced compression of the cord. Partial anterior corpectomy and decompression with interbody fusion was recommended. She was admitted on 02/24/2019 and underwent wide and radical discectomy on C3-C4 with partial corpectomy at C3 and C4; interbody fusion, use of local autograft and bone graft coremaker experimental. The tolerated procedure well. Surgery was uneventful. Post-operatively, patient was admitted for post-op care. She was seen by paint process engineer and trade promotion analyst. She was placed on SCDs for DVT prophylaxis and was encouraged use of incentive spirometer. Patient was given pain management. She was seen by PT. advised to wear a cervical spine collar. Diet was advanced. Incision was clean, dry and intact. Patient was ambulating well with good pain control and was tolerating diet. She was breathing, phonating and swallowing within normal limits. Patient was eventually cleared for discharge home. PREOPERATIVE DIAGNOSIS: Severe spinal stenosis C3-C4 with advanced diskogenic collapse. POSTOPERATIVE DIAGNOSIS: Severe spinal stenosis C3-C4 with advanced diskogenic collapse. PROCEDURE: 1. Wide and radical diskectomy, C3-C4. 2. Partial corpectomies at C3 and C4. 3. Interbody fusion using structural cage by 4 WEB. 4. Use of local autograft and [employer] bone graft coremaker experimental. 5. Anterior instrumentation using RTI plates. 6. Use of fluoroscopy. 7. Neurodiagnostic monitoring. 8. Use of operating microscope. (Refer to Operative Report) DISCHARGE DISPOSITION: Patient was discharged home. DISCHARGE MEDICATIONS: Refer to Medication Reconciliation Sheet. DISCHARGE INSTRUCTIONS: Post-op instructions given. Follow-up in a week. I have been assigned to complete a DC summary on this account, I was not involved with the patient's management. Hilary Cobb NP Feb 26, 2019 10:07
== END 2019-02-25 13:45 | disposition home or self-care (01) | DRG 473 ==
LOC: SDSOVERFLO 07:07 → 3E 12:20
PROC: 0RG20A0 Fusion of 2 or more Cervical Vertebral Joints with Interbody Fusion Device, Anterior Approach, Anterior Column, Open Approach (ICD-10-PCS; principal; 2019-02-24 08:30)
PROC: 0RT30ZZ Resection of Cervical Vertebral Disc, Open Approach (ICD-10-PCS; principal; 2019-02-24 08:30)
DX: M50.31 Other cervical disc degeneration, high cervical region (principal); M48.02 Spinal stenosis, cervical region; Z88.1 Allergy status to other antibiotic agents; Z88.2 Allergy status to sulfonamides; Z98.1 Arthrodesis status; E78.5 Hyperlipidemia, unspecified; M06.9 Rheumatoid arthritis, unspecified; Z87.891 Personal history of nicotine dependence; J45.909 Unspecified asthma, uncomplicated; I49.9 Cardiac arrhythmia, unspecified
CPT/HCPCS: 36415; 72040; 76000; 86850; 86900; 86901; 87081; 94003; 94150; J2250; J2405; J2765